=== PATIENT | female | born 1965 | race Caucasian/White ===

== ENCOUNTER 2017-08-29 14:49 | Emergency (ER) | payer OTHER, SELFPAY ==
[2017-08-29 14:49] VITALS: BP 133/87; PULSE 75; RESP 14; TEMP 36.4; BMI 38.1
--- NOTE | 2017-08-29 15:21 | CT_ITS ---
STUDY: CT BRAIN WITHOUT CONTRAST REASON FOR EXAM: Female, 52 years old. There is haziness following a recent fall. RADIATION DOSAGE (If Supplied By Facility): CTDIvol = ( 44.99 ) mGy, DLP = ( 779.24 ) mGycm TECHNIQUE: Transaxial CT imaging of the brain was performed without administration of intravenous contrast material. Individualized dose optimization techniques were used for this CT. COMPARISON: None. FINDINGS: Normal soft tissue structures. Normal calvarium. Normal size ventricles and extra-axial spaces for the patient's age. Normal white matter tracts of the cerebral hemispheres. Normal basal ganglia and thalami. Normal brainstem. Normal cerebellum. There is no intracranial hemorrhage. There are no findings of an acute ischemic infarction. Normal visualized paranasal sinuses. CT/Brain/Head without Contrast IMPRESSION: Normal unenhanced CT scan of the brain. Electronically Signed: Sajan Bower MD at 15:51 EST Tel [phone], Service support ,
--- NOTE | 2017-08-29 15:21 | RAD_ITS ---
STUDY: X-RAY - THORACIC SPINE REASON FOR EXAM: Female, 52 years old. History of fall. TECHNIQUE: AP and lateral view(s) of the thoracic spine were obtained. COMPARISON: None. FINDINGS: Normal kyphosis of the thoracic spine. There is no substantial scoliosis. There is demineralization of the thoracic spine with endplate spondylosis. There is multilevel disc space narrowing of the thoracic spine. The soft tissue structures are unremarkable. RAD/Thoracic Spine 3 Views IMPRESSION: Degenerative changes of the dorsal spine. Prior fusion of the lower cervical spine. Electronically Signed: Sajan Bower MD at 15:59 EST Tel [phone], Service support ,
--- NOTE | 2017-08-29 15:21 | CT_ITS ---
STUDY: CT CERVICAL SPINE WITHOUT CONTRAST REASON FOR EXAM: Female, 52 years old. Injury following a recent fall. RADIATION DOSAGE (If Supplied By Facility): CTDIvol = ( 18.64 ) mGy, DLP = ( 326.9 ) mGycm TECHNIQUE: High resolution transaxial imaging was performed without contrast material. Sagittal and coronal images were reconstructed. Individualized dose optimization techniques were used for this CT. COMPARISON: None FINDINGS: Normal craniovertebral junction. Normal anterior atlantoaxial articulation. Normal odontoid process. Normal cervical lordosis. Normal vertebral bodies and posterior osseous elements. C2-3: Normal endplates. Normal disc height and morphology. Normal central canal and intervertebral neuroforamina. C3-4: Normal endplates. Normal disc height and morphology. Normal central canal and intervertebral neuroforamina. C4-5: Mild degree of anterior spondylosis. C5-6: Mild degree of disc space narrowing and degeneration. No significant abnormality is seen. C6-7: The patient is status post anterior fusion and disc placement at the C6-C7 level. There is good alignment. No significant abnormality is seen. C7-T1: Normal endplates. Normal disc height and morphology. Normal central canal and intervertebral neuroforamina. Normal visualized soft tissue structures. CT/Spine Cervical without Contras IMPRESSION: Status post fusion at the C6-C7 level. No acute abnormality is seen. Electronically Signed: Sajan Bower MD at 15:53 EST Tel [phone], Service support ,
--- NOTE | 2017-08-29 15:22 | ED.VISSUMM ---
- ER Visit Summary Date of Service: 08/29/17 Chief Complaint: Fall History of Present Illness: The patient is a 52 F who is post trauma day 3 from a fall down steps. She states that Monday night she went to let the dog out and she slipped. She landed on her low back and then she went down the stairs struck her mid back and then her head. She states that since that time she has had pain diffusely in her back that is worse with movements. She has pain in the neck is worse with movement. Tinnitus is worse. She notes constant headache and nausea. Been no vomiting. She denies paresthesias or muscle weakness. Patient has a history of PTSD, anxiety, depression, vertigo and GERD. She also notes a bladder disorder. She denies being on any blood thinners. Physical Examination: Afebrile vital signs are stable Gen: Well-nourished well-developed Head: Normocephalic atraumatic Eyes: Perrl EOMI ENT: TMs clear no rhinorrhea moist mucous membranes Neck: Supple no lymphadenopathy no JVD tender to palpation diffusely in the paraspinal and midline. CVS: Regular rate rhythm no murmurs normal S1-S2 Respiratory: No distress clear to auscultation bilaterally chest nontender Abdomen: Soft nontender nondistended normal bowel sounds no masses Back: Patient has paraspinal thoracic tenderness and tenderness in the midline and paraspinal of the lumbar spine. There is contusion noted over the upper lumbar region. Extremity: Nontender no edema Skin: Normal color no rash Neuro: alert orientated ?3 CN II-XII intact normal strength sensation reflexes gait cerebellar Psych: Normal affect normal mood Test Results: CT of brain and C-spine was obtained. Thoracic and lumbar spine films were also obtained. These were negative for acute. Emergency Department Course and Treatment: Patient will be discharged home with supportive care. Instructions for rest. Zofran for nausea. Tylenol or ibuprofen for pain. Follow-up with her doctor in 1 week. Impression: 1. Fall down steps 2. Concussion 3. Cervical and thoracic myofascial strain 4. Lumbar myofascial strain and contusion This note was generated with [employer] dictation software. It may contain incorrect words, spelling, and punctuation that were not noted in review of the chart prior to signing ED Disposition - Plan for ED Patient: Disposition: Home or Assisted Living Chief Complaint: Head Injury Instructions: ED Concussion, ED Contusion Back Prescriptions: Ondansetron [Zofran Odt] 4 mg PO Q8H PRN PRN #10 tab PRN Reason: Nausea Referrals: Care Physician,No Primary [Primary Care Provider] - Shan Epstein MD [STAFF PHYSICIAN] - 1 Week
--- NOTE | 2017-08-29 15:30 | RAD_ITS ---
STUDY: X-RAY - LUMBAR SPINE REASON FOR EXAM: Female, 52 years old. Pain following a fall. TECHNIQUE: 3 view(s) of the lumbar spine were obtained. COMPARISON: None FINDINGS: Normal lumbar lordosis. There is no substantial scoliosis. There is a normal alignment of the vertebrae. Normal vertebral bodies and endplates. Normal disc space heights. The soft tissue structures are unremarkable. RAD/Lumbar Spine 2 or 3 Views IMPRESSION: Normal x-ray examination of the lumbar spine. Electronically Signed: Sajan Bower MD at 15:56 EST Tel [phone], Service support ,
[2017-08-29 16:26] VITALS: BP 134/74; PULSE 79; RESP 16; O2SAT 98
== END 2017-08-29 16:29 | disposition home or self-care (01) ==
PROVIDERS: Emergency Provider Emergency Medicine
DX: S06.0X0A Concussion without loss of consciousness, initial encounter (principal); S16.1XXA Strain of muscle, fascia and tendon at neck level, initial encounter; S29.019A Strain of muscle and tendon of unspecified wall of thorax, initial encounter; S39.012A Strain of muscle, fascia and tendon of lower back, initial encounter; S30.0XXA Contusion of lower back and pelvis, initial encounter; R40.2410 Glasgow coma scale score 13-15, unspecified time; W10.9XXA Fall (on) (from) unspecified stairs and steps, initial encounter; Y93.9 Activity, unspecified; Y92.9 Unspecified place or not applicable; K21.9 Gastro-esophageal reflux disease without esophagitis; F43.10 Post-traumatic stress disorder, unspecified; F32.9 Major depressive disorder, single episode, unspecified; F41.9 Anxiety disorder, unspecified; R42 Dizziness and giddiness; N32.9 Bladder disorder, unspecified; Z72.89 Other problems related to lifestyle; Z79.899 Other long term (current) drug therapy; Z72.0 Tobacco use
CPT/HCPCS: 70450; 72072; 72100; 72125; 99282

== ENCOUNTER 2019-09-26 13:14 | Observation (INO) | payer SELFPAY ==
[2019-09-26] VITALS (7 sets, daily range): BP systolic 123–160; BP diastolic 88–96; PULSE 71–96; RESP 15–20; TEMP 36.4–36.6; O2SAT 92–97; BMI 25.4; BMI 25.7
--- NOTE | 2019-09-26 13:23 | EKG12_ITS ---
Test Reason : CP SOB Blood Pressure : / mmHG Vent. Rate : 082 BPM Atrial Rate : 082 BPM P-R Int : 144 ms QRS Dur : 082 ms QT Int : 378 ms P-R-T Axes : 045 033 036 degrees QTc Int : 441 ms Normal sinus rhythm Normal ECG Confirmed by CLAUDIA ARANDA, NIKO ([id number]), news video editor DANTE LAFLEUR ([id number]) on 09/30/2019 10:29:24 AM Referred By: BUNNY Confirmed By:PAULA TAYLOR MD
--- NOTE | 2019-09-26 13:36 | ED.DCSUM_ITS ---
- ER Visit Summary Date of Service: 09/26/19 Chief Complaint: [Shortness of breath] History of Present Illness: The patient is a 54 F [presents to the emergency department with complaint of shortness of breath that started about a week ago. Patient states that she was exposed to somebody at work and had pneumonia. Patient thinks she has pneumonia. She complains of a cough that is nonproductive. She has not taken her temperature at home but she has had chills and sweats. Patient complains of intermittent sharp stabbing chest pains both sides of her chest. Complains of shortness of breath with activity and exertion. Patient has history of migraines as well as vertigo as well as IBS. She has had prior cholecystectomy. Patient was placed on oxygen on arrival in the emergency department as she was acutely severely dyspneic secondary that walking up the ramp. Patient was not noted to be hypoxic however.] Physical Examination: [HEENT-PERRLA, EOMI. Cranial nerves II through XII grossly intact. TMs clear. Mucous membranes moist. No adenopathy. Cardiovascular-regular rate and rhythm without murmur or ectopy Lungs-good aeration bilaterally. Patient has some mild conversational dyspnea. Patient has some faint expiratory wheezes bilaterally. No accessory muscle use or retractions noted. Abdomen-normoactive bowel sounds, soft, nontender, no rebound or rigidity, no peritoneal signs. Extremities-intact ?4, normal range of motion, normal pulses, atraumatic] Test Results: [CBC with differential obtained showed white blood cell count of 8.0, hemoglobin 12, hematocrit 37, platelets 181. Chemistries unremarkable. EKG obtained arrival shows sinus rhythm with a ventricular rate of 82 bpm with no acute ST segment changes. Lactate was 1.3. D-dimer was 0.33. Chest x-ray showed bilateral lower lobe infiltrates. Blood cultures ordered.] Emergency Department Course and Treatment: [Initially patient was ordered albuterol however she states that she cannot tolerate it causes her to have con vulsions and she refused it. Patient has multiple drug allergies. I did order Levaquin although she does have allergy to ciprofloxacin and that she gets a rash with Cipro. Patient not sure if she is ever had Levaquin.] Treatment Plan: [Admit] Disposition: [Admit] Impression: [Community-acquired pneumonia Dyspnea] This note was generated with Dragon dictation software. It may contain incorrect words, spelling, and punctuation that were not noted in review of the chart prior to signing ED Disposition - Plan for ED Patient: Referrals: Care Physician,No Primary [NON-STAFF] -
[2019-09-26 14:06] LABS: Absolute Lymphocyte Count 1.48 X10^3/uL (0.83-4.51); Basophil# 0.03 X10^3/uL; Basophil% 0.4 % (0-1); Eosinophil# 0.07 X10^3/uL; Eosinophils% 0.9 % (0-5); Hematocrit 36.9 % (37-47); Lymphocyte # 1.48 X10^3/ul (4.0); Lymphocyte % 18.5 % (19-41); Mean Corp Hgb Conc 32.5 g/dL (32-36); Mean Corpuscular Hgb 31.1 pg (27.0-32.0); Mean Corpuscular Volume 95.6 fL (81-99); Mean Platelet Vol. 9.9 fl (6.2-12.0); Monocyte# 0.42 X10^3/uL; Monocyte% 5.2 % (0-10); NRBC Flagged by Analyzer 0 % (0-5); Neutrophil # 5.98 X10^3/uL (2.7-7.7); Neutrophil % 74.5 % (47-70); Platelet Count 181 K/mm3 (150-450); Red Blood Count 3.86 M/mm3 (4.2-5.4)
--- NOTE | 2019-09-26 14:15 | RAD_ITS ---
EXAM DESCRIPTION: PA and lateral chest CLINICAL HISTORY: 54 years Female, cough, chest pain cough, chest pain COMPARISON: Previous is obtained on 05/11/2012 FINDINGS: The thorax is intact. The heart and mediastinum appear to be within normal limits. Patchy pneumonic infiltrates are noted in both lung bases which previously were not seen. Some of the increased density may in fact be due to subsegmental atelectasis. RAD/Chest PA and Lateral IMPRESSION: Atelectasis and patchy pneumonic infiltrates are noted in both lung bases. Electronically Signed: Erasmo Eason, at 14:46 EST Tel , Service support ,
[2019-09-26 14:19] LABS: Anion Gap 5 (5-15); BUN 25 mg/dL (7-18); BUN/Creat Ratio 20.5 RATIO (10-20); Calcium,Total 8.9 mg/dL (8.5-10.1); Chloride 111 mmol/L (98-107); Creatinine, Serum 1.22 mg/dL (0.55-1.02); D-Dimer Quantitative (DVT/PE) 0.33 FEU/ug/m (0.27-0.49); EST Glomerular Filtration Rate 49 mL/min (>60); Est Glom Filt Rate - Afr Amer 59 mL/min (>60); Glucose 142 mg/dL (74-106); Potassium 3.7 mmol/L (3.5-5.1); Sodium Level 143 mmol/L (136-145)
[2019-09-26 14:28] LABS: Lactic Acid 1.3 mmol/L (0.4-1.9)
[2019-09-26] MEDS: 0.9% Normal Saline 1,000 ML 150 ML IV (14:34)
--- NOTE | 2019-09-26 15:25 | PCM.HP.STD ---
Problem List (1) Pneumonia Status: Acute Qualifiers: Pneumonia type: due to unspecified organism Laterality: bilateral Lung location: lower lobe of lung Qualified Code(s): J18.9 - Pneumonia, unspecified organism (2) Hyperglycemia Status: Acute (3) Migraines Status: Chronic Qualifiers: Migraine type: unspecified Status migrainosus presence: without status migrainosus Intractability: not intractable Qualified Code(s): G43.909 - Migraine, unspecified, not intractable, without status migrainosus (4) Chronic back pain Status: Chronic Qualifiers: Back pain location: back pain in unspecified location Back pain laterality: unspecified Qualified Code(s): M54.9 - Dorsalgia, unspecified; G89.29 - Other chronic pain (5) Vestibular vertigo Status: Chronic Qualifiers: Laterality: unspecified laterality Qualified Code(s): H81.399 - Other peripheral vertigo, unspecified ear (6) IBD (inflammatory bowel disease) Status: Chronic (7) Fibromyalgia Status: Chronic (8) Tobacco use Status: Chronic History of Present Illness Date of Admission: 09/26/19 Chief Complaint: Cough, dyspnea, pleuritic chest pain The patient is a 54 y/o F w/ PMHx: Chronic Migraines, Chronic back pain w/ DDD, Vestibular Vertigo, IBD, Fibromyalgia, Former Tobacco use who presents to the [facility] ED on 09/26/19 with history of ongoing, progressively worsening severe harsh cough with rare productive sputum with dyspnea although worse with exertion with chills, subjective fevers and diaphoresis in addition to bilateral diffuse pleuritic chest discomfort, worse with increased respiratory effort as well as activity and certain movements prompting patient eventual ED presentation for evaluation. In ED included T 97.6, rate 86, BP 142/93, respiratory rate 20, 95% room air, CBC with WC 8.0, hemoglobin 12.0, platelet 181 with no severe appearing shift, d-dimer 0.33, BMP with chloride 111, BUN/creatinine 25/1.22, glucose 142, lactic acid 1.3, rapid influenza negative, blood culture x2 pending per ED, chest x-ray with atelectasis and patchy pneumonic infiltrate in bilateral lung bases in the ED patient ministered DuoNeb therapy, Levaquin in edition normal saline. Past Medical History Past Medical History (Chronic Problems): Chronic Problems Migraines (Chronic) Chronic back pain (Chronic) Vestibular vertigo (Chronic) IBD (inflammatory bowel disease) (Chronic) Fibromyalgia (Chronic) Tobacco use (Chronic) Allergies acetaminophen [From Percocet] Allergy (Verified 09/26/19 13:14) Hives adhesive Allergy (Verified 09/26/19 13:14) Hives amitriptyline Allergy (Verified 09/26/19 13:14) Hives amoxicillin Allergy (Verified 09/26/19 13:14) Hives azithromycin [From Zithromax] Allergy (Verified 09/26/19 13:14) Hives ciprofloxacin [From Cipro] Allergy (Verified 09/26/19 13:14) Hives ciprofloxacin HCl [From Cipro] Allergy (Verified 09/26/19 13:14) Hives diphenhydramine HCl [From Benadryl] Allergy (Verified 09/26/19 13:14) Anaphylaxis duloxetine HCl [From Cymbalta] Allergy (Verified 09/26/19 13:14) Other HALLUCINATIONS furosemide [From Lasix] Allergy (Verified 09/26/19 13:14) Hives guaifenesin [From Mucinex] Allergy (Verified 09/26/19 13:14) Hives hydrochlorothiazide Allergy (Verified 09/26/19 13:14) Hives iodine Allergy (Verified 09/26/19 13:14) Hives latex Allergy (Verified 09/26/19 13:14) Hives orange juice Allergy (Verified 09/26/19 13:14) Hives oxycodone HCl [From Percocet] Allergy (Verified 09/26/19 13:14) Hives Penicillins Allergy (Verified 09/26/19 13:14) Hives povidone-iodine [From Betadine] Allergy (Verified 09/26/19 13:14) Hives ramelteon [From Rozerem] Allergy (Verified 09/26/19 13:14) Other HALLUCINATIONS soap [From Betadine] Allergy (Verified 09/26/19 13:14) Hives Sulfa (Sulfonamide Antibiotics) Allergy (Verified 09/26/19 13:14) Hives topiramate [From Topamax] Allergy (Verified 09/26/19 13:14) Hives venlafaxine HCl [From Effexor] Allergy (Verified 09/26/19 13:14) Hives BERRIES Allergy (Uncoded 09/26/19 13:14) Unknown Home Medications: Ambulatory Orders Medication Instructions Recorded ALPRAZolam [Xanax] 3 mg PO QHS 12/04/14 Montelukast [Singulair] 10 mg PO DAILY 12/04/14 Pantoprazole Sodium [Protonix] 40 mg PO QHS 12/04/14 traZODone [Desyrel] 50 mg PO QHS PRN PRN 12/04/14 Pentosan Polysulfate Sodium 100 mg PO BID 07/20/16 [Elmiron] Ondansetron [Zofran Odt] 4 mg PO Q8H PRN PRN #10 tab 08/29/17 Acetaminophen/Diphenhydramine 1 tab PO QHS 09/26/19 [Tylenol Pm Ex-Strength Caplet] Benzonatate [Tessalon Perle] 200 mg PO TID 09/26/19 Cetirizine HCl [Zyrtec] 20 mg PO QHS 09/26/19 Fluticasone 0.05% [Flonase Nasal 2 spray NASAL QHS 09/26/19 [place]] Hyoscyamine Sulfate 0.125 mg PO DAILY 09/26/19 Nitrofurantoin Macrocrystal 50 mg PO QHS 09/26/19 [Macrodantin] Phenazopyridine HCl [Pyridium] 100 mg PO DAILY 09/26/19 Tizanidine HCl [Zanaflex] 4 mg PO QHS 09/26/19 Surgical History: - - Cholecystectomy, sinus surgery, deviated septum, hysterectomy, neck surgery. Psychiatric History: No pertinent psych hx FUR BUYER History: No pertinent FUR BUYER history Lives: With Family - Patient notes that she lives with her daughter. Smoking Status: Current every day smoker - Patient states she quit cigarette tobacco usage approximately 2 days prior to current presentation with prior to this noting that 2 packs would last her a week and has been attempting to quit. Tobacco Use: Cigarettes Alcohol: Occasional Drugs: None - *Family History Maternal History Items: - - Patient with maternal family history of hypertension, heart disease, CAD, PAD. Paternal History Items: - - Patient with a paternal family history of colon cancer. Review of Systems Constitutional: Reports: Anorexia, Chills, Fever, Malaise, Weakness, Fatigue. Denies: Weight Change HEENT: Reports: Head Aches, Nasal Congestion, Sinus Congestion, Sinus Drainage, Sore Throat Cardiovascular: Reports: Chest Pain. Denies: Chest Pressure, Chest Tightness, Light Headedness, Orthopnea, Palpitations, Syncope Respiratory: Reports: Cough, Pleuritic Pain, Shortness of Breath, Shortness of breath at rest, Shortness of breath upon exertion, Sputum production Gastrointestinal: Reports: Nausea. Denies: Abdominal Pain, Vomiting Genitourinary: Denies: Dysuria Musculoskeletal: Reports: Back Pain, Joint Pain, Muscle pain. Denies: Joint Tenderness Skin: Denies: Rash, Wounds Neurological: Denies: Numbness, Tingling, Focal weakness Psychiatric: Denies: Anxiety, Depression, Homicidal Ideations, Suicidal Ideations Hematologic/ Lymphatic: Denies: Easy Bruising, Easy Bleeding VTE Information - Inpt Only VTE Present on Admission: No VTE Mechan Device Prophylaxis: SCD's VTE Pharm Prophylaxis ordered?: Yes Patient Problems: Active and Suspected Problems Pneumonia (Acute) Hyperglycemia (Acute) Subjective: Patient seated upright in ED bed, fatigued appearing although very talkative and no appearance of dyspnea but does have significant pleuritic discomfort with increased respiratory effort and coughing bout with examination. Objective: Physical Examination: General: awake, alert, oriented x 3 and cooperative, seated upright in the ED bed, no acute distress upon initial evaluation although following coughing bout significant pleuritic discomfort. Skin: normal color, turgor, no icterus, cyanosis. HEENT: AT/NC, EOMI, PERRLA, dry MM, no carotid bruits or JVD noted. Lungs: Diminished breath sounds bilaterally, greater bilateral bases, mildly rhonchorous, no rales, no wheezing, severe dry coughing bout with increased effort request. Heart: Regular rate and rhythm; no gallop, rub audible. Abdomen: soft, NTTP, ND, normal BS, no HSM. Extremities: no cyanosis, clubbing, or edema. Neurological: patient awake, alert, oriented x 3; cognitive function appears baseline intact; pupils equally reactive to light and accomodation; cranial nerves II-XII grossly normal, moving all 4 extremities, no focal deficits, strength severely globally decreased secondary to acute presentation. Psychiatric: affect appears fatigued, no acute evidence of depressive or anxiety feelings. - Physical Exam Vitals/I&O's: Vital Signs Temp Pulse Resp BP Pulse Ox 97.6 F L 83 15 123/88 H 92 09/26/19 13:15 09/26/19 14:26 09/26/19 14:26 09/26/19 14:26 09/26/19 14:26 Oxygen Delivery Method Room Air Weight: 143 lb 4.807 oz Body Mass Index (BMI) 25.4 Microbiology Past 72 Hours 09/26/19 14:07 Mucosa - Nose Influenza Types A,B Direct FA (ANGELA) - Final Laboratory Results 09/26/19 13:50: WBC 8.0, RBC 3.86 L, Hgb 12.0, Hct 36.9 L, MCV 95.6, MCH 31.1, MCHC 32.5, RDW Std Deviation 45.0 H, RDW Coeff of Trista 13.0, Plt Count 181, MPV 9.9, Immature Gran % (Auto) 0.500, Neut % (Auto) 74.5 H, Lymph % (Auto) 18.5 L, [place] % (Auto) 5.2, Eos % (Auto) 0.9, Baso % (Auto) 0.4, Absolute Neuts (auto) 6.0, Absolute Lymphs (auto) 1.48, Nucleated RBC % 0 09/26/19 13:50: D-Dimer Quant (PE/DVT) 0.33 09/26/19 13:50: Sodium 143, Potassium 3.7, Chloride 111 H, Carbon Dioxide 27.0, Anion Gap 5, BUN 25 H, Creatinine 1.22 H, Estim Creat Clear Calc 43.10, Est GFR (MDRD) Af Amer 59 L, Est GFR (MDRD) Non-Af 49 L, BUN/Creatinine Ratio 20.5 H, Glucose 142 H, Calcium 8.9 09/26/19 13:50: Lactic Acid 1.3 Current Medications Sodium Chloride () 1,000 mls @ 150 mls/hr IV .[id number] Last Admin: 09/26/19 14:34 Dose: 150 mls/hr Documented by: Levofloxacin (Levaquin Iv) 750 mg in 150 mls @ 100 mls/hr IV X1 ONE Stop: 09/26/19 16:38 Assessment/Plan All Active Problems Pneumonia (Acute) Hyperglycemia (Acute) The patient is a 54 y/o F w/ PMHx: Chronic Migraines, Chronic back pain w/ DDD, Vestibular Vertigo, IBD, Fibromyalgia, Former Tobacco use who presents to the [facility] ED on 09/26/19 with history of ongoing, progressively worsening severe harsh cough with rare productive sputum with dyspnea although worse with exertion with chills, subjective fevers and diaphoresis in addition to bilateral diffuse pleuritic chest discomfort, worse with increased respiratory effort as well as activity and certain movements prompting patient eventual ED presentation for evaluation. 1. Community Acquired Bilateral LL Pneumonia: In ED included T 97.6, rate 86, BP 142/93, respiratory rate 20, 95% room air, CBC with WC 8.0, hemoglobin 12.0, platelet 181 with no severe appearing shift, d-dimer 0.33, BMP with chloride 111, BUN/creatinine 25/1.22, glucose 142, lactic acid 1.3, rapid influenza negative, blood culture x2 pending per ED, chest x-ray with atelectasis and patchy pneumonic infiltrate in bilateral lung bases. Will admit to [facility], maintain on oxygen with wean as tolerated to room air, continue ATC duonebs, PRN albuterol, maintained on IV Levaquin secondary to allergy, HOB, IS parameters w/ pending sputum cultures, respiratory viral panel and urine antigens. 2. Hyperglycemia: Admission glucose 142, hemoglobin A1c requested. 3. Mild renal insufficiency: Admission BUN/creatinine 25/1.22, baseline 0.9, likely secondary to acute presentation as noted, continue to hydrate, repeat BMP in AM. 4. Chronic back pain: We will continue patient home Xanax, tizanidine regimen. 5. Chronic insomnia: We will continue patient home trazodone nightly regimen. 6. Allergic rhinitis: We will continue patient home Zyrtec. 7. Chronic IBD: We will continue patient home high Cosamin regimen. 8. GERD: We will continue patient home PPI. 9. DVT prophylaxis: SCDs, Lovenox. Code Visit Inpatient E&M: 10052 Init Hosp L3
[2019-09-26] MEDS: levoFLOXacin IV 750 MG/150 ML BAG 100 MG IV (15:40)
[2019-09-26 18:42] LABS: Hemoglobin A1c 4.4 % (4.2-6.3)
[2019-09-26] MEDS: Benzonatate 100 MG Capsule 200 MG PO (19:02)
[2019-09-26] MEDS: 0.9% Normal Saline 1,000 ML 125 ML IV (19:06)
[2019-09-26] MEDS: HYDROmorphone 0.5 MG/0.5 ML SYRINGE IV ×2 (19:07→23:38)
[2019-09-26] MEDS: 0.9% Saline Lock 10 ML Syringe IV ×2 (19:08→23:38)
[2019-09-26] MEDS: Fluticasone 0.05% 1 SPRAY NASAL.SRY 2 SPRAY NASAL (23:22)
[2019-09-26] MEDS: traZODone 50 MG Tablet PO (23:23)
[2019-09-26] MEDS: ALPRAZolam 0.5 MG Tablet 3 MG PO (23:23)
[2019-09-26] MEDS: Pantoprazole Sodium 40 MG Tablet PO (23:24)
[2019-09-26] MEDS: tiZANidine HCl 2 MG Tablet 4 MG PO (23:24)
[2019-09-27] MEDS: 0.9% Normal Saline 1,000 ML 125 ML IV (03:45)
[2019-09-27 03:57] VITALS: BP 136/81; PULSE 63; RESP 17; TEMP 36.4; O2SAT 94
[2019-09-27] MEDS: Benzonatate 100 MG Capsule 200 MG PO (05:34)
[2019-09-27 06:03] LABS: Absolute Lymphocyte Count 1.45 X10^3/uL (0.83-4.51); Basophil# 0.02 X10^3/uL; Basophil% 0.4 % (0-1); Eosinophil# 0.12 X10^3/uL; Eosinophils% 2.5 % (0-5); Hematocrit 35.1 % (37-47); Hemoglobin 11.2 g/dL (12.0-15.0); Lymphocyte # 1.45 X10^3/ul (4.0); Lymphocyte % 29.7 % (19-41); Mean Corp Hgb Conc 31.9 g/dL (32-36); Mean Corpuscular Hgb 30.8 pg (27.0-32.0); Mean Corpuscular Volume 96.4 fL (81-99); Mean Platelet Vol. 10.1 fl (6.2-12.0); Monocyte# 0.29 X10^3/uL; Monocyte% 5.9 % (0-10); NRBC Flagged by Analyzer 0 % (0-5); Neutrophil # 2.98 X10^3/uL (2.7-7.7); Neutrophil % 61.1 % (47-70); Platelet Count 166 K/mm3 (150-450); RBC Distribution Width CV 12.8 % (11.6-14.6); RBC Distribution Width SD 45.1 fl (35.1-43.9); Red Blood Count 3.64 M/mm3 (4.2-5.4); White Blood Count 4.9 K/mm3 (4.4-11.0)
[2019-09-27 06:27] LABS: ALB/GLOB Ratio 1.1 RATIO (0.9-2.4); AST(SGOT) 24 U/L (15-37); Alanine Aminotransfer ALT/SGPT 61 U/L (13-56); Albumin, Serum 3.2 g/dL (3.2-5.0); Alkaline Phosphatase 63 U/L (45-117); Anion Gap 6 (5-15); BUN 17 mg/dL (7-18); BUN/Creat Ratio 17.4 RATIO (10-20); Calcium,Total 8.2 mg/dL (8.5-10.1); Chloride 112 mmol/L (98-107); Creatinine, Serum 0.98 mg/dL (0.55-1.02); EST Glomerular Filtration Rate 63 mL/min (>60); Est Glom Filt Rate - Afr Amer 76 mL/min (>60); Estimated Creatinine Clearance 53.66 ml/min; Globulin 2.9 g/dL (2.2-4.2); Glucose 101 mg/dL (74-106); Protein, Total 6.1 g/dL (6.4-8.2); Sodium Level 143 mmol/L (136-145)
[2019-09-27 07:00] VITALS: O2SAT 92
--- NOTE | 2019-09-27 07:21 | PCM.PN.HOSP ---
Patient Problems: Active and Suspected Problems Pneumonia (Acute) Hyperglycemia (Acute) Vitals/I&O's: Vital Signs Temp Pulse Resp BP Pulse Ox 97.6 F L 63 17 136/81 H 94 09/27/19 03:57 09/27/19 03:57 09/27/19 03:57 09/27/19 03:57 09/27/19 03:57 Oxygen Delivery Method Room Air Weight: 65.816 kg Body Mass Index (BMI) 25.7 Intake and Output for Last 24 Hours 09/25/19 09/26/19 09/27/19 23:59 23:59 23:59 Intake Total 830 / 1230 1600 / 1600 Output Total 700 / 1300 600 / 600 Balance 130 / -70 1000 / 1000 Microbiology Past 72 Hours 09/26/19 18:20 Urine, Random Legionella Antigen - Final 09/26/19 18:50 Urine, Clean Catch Streptococcus pneumoniae Antigen (M - Final 09/26/19 14:07 Mucosa - Nose Influenza Types A,B Direct FA (ANGELA) - Final Laboratory Results 09/26/19 13:50: WBC 8.0, RBC 3.86 L, Hgb 12.0, Hct 36.9 L, MCV 95.6, MCH 31.1, MCHC 32.5, RDW Std Deviation 45.0 H, RDW Coeff of Trista 13.0, Plt Count 181, MPV 9.9, Immature Gran % (Auto) 0.500, Neut % (Auto) 74.5 H, Lymph % (Auto) 18.5 L, Gem % (Auto) 5.2, Eos % (Auto) 0.9, Baso % (Auto) 0.4, Absolute Neuts (auto) 6.0, Absolute Lymphs (auto) 1.48, Nucleated RBC % 0 09/26/19 13:50: D-Dimer Quant (PE/DVT) 0.33 09/26/19 13:50: Sodium 143, Potassium 3.7, Chloride 111 H, Carbon Dioxide 27.0, Anion Gap 5, BUN 25 H, Creatinine 1.22 H, Estim Creat Clear Calc 43.10, Est GFR (MDRD) Af Amer 59 L, Est GFR (MDRD) Non-Af 49 L, BUN/Creatinine Ratio 20.5 H, Glucose 142 H, Calcium 8.9 09/26/19 13:50: Lactic Acid 1.3 09/26/19 13:50: Hemoglobin A1c 4.4 09/27/19 05:30: WBC 4.9, RBC 3.64 L, Hgb 11.2 L, Hct 35.1 L, MCV 96.4, MCH 30.8, MCHC 31.9 L, RDW Std Deviation 45.1 H, RDW Coeff of Trista 12.8, Plt Count 166, MPV 10.1, Immature Gran % (Auto) 0.400, Neut % (Auto) 61.1, Lymph % (Auto) 29.7, Gem % (Auto) 5.9, Eos % (Auto) 2.5, Baso % (Auto) 0.4, Absolute Neuts (auto) 3.0, Absolute Lymphs (auto) 1.45, Nucleated RBC % 0 09/27/19 05:30: Sodium 143, Potassium 4.0, Chloride 112 H, Carbon Dioxide 25.0, Anion Gap 6, BUN 17, Creatinine 0.98, Estim Creat Clear Calc 53.66, Est GFR (MDRD) Af Amer 76, Est GFR (MDRD) Non-Af 63, BUN/Creatinine Ratio 17.4, Glucose 101, Calcium 8.2 L, Total Bilirubin 0.30, AST 24, ALT 61 H, Alkaline Phosphatase 63, Total Protein 6.1 L, Albumin 3.2, Globulin 2.9, Albumin/Globulin Ratio 1.1 Current Medications Acetaminophen (Tylenol) 650 mg PO Q6H PRN PRN PRN Reason: Pain Score 1-10/Temp > 100.7 F Hydrocodone Bitart/Acetaminophen ([place] 5mg-325mg) 2 tablet PO Q4H PRN PRN PRN Reason: pain 4-10/10 Al Hydroxide/Mg Hydroxide (Mylanta Ii) 30 ml PO Q6H PRN PRN PRN Reason: Gastric Burning Albuterol Sulfate (Ventolin Aerosols) 2.5 mg INHALATION Q2H PRN PRN PRN Reason: dyspnea, wheezing Albuterol/Ipratropium (Duoneb) 3 ml INHALATION Q6HWA.RT [facility] Last Admin: 09/26/19 19:35 Dose: Not Given Documented by: Alprazolam (Xanax) 3 mg PO QHS [facility] Last Admin: 02/27/20 23:23 Dose: 3 mg Documented by: Benzonatate (Tessalon Perle) 200 mg PO TID [facility] Last Admin: 09/27/19 05:34 Dose: 200 mg Documented by: Fluticasone Propionate (Flonase Nasal [place]) 2 spray NASAL QHS [facility] Last Admin: 09/26/19 23:22 Dose: 2 spray Documented by: Glucagon () 1 mg IM .X1 PRN PRN Reason: Hypoglycemia Hydromorphone HCl (Dilaudid Inj) 0.5 mg IV Q4H PRN PRN PRN Reason: Pain Score 6-10/10 Last Admin: 09/26/19 23:38 Dose: 0.5 mg Documented by: Hyoscyamine Sulfate (Levsin/Sl) 0.125 mg PO DAILY [facility] Sodium Chloride () 1,000 mls @ 125 mls/hr IV .Q8H [facility] Last Admin: 09/27/19 03:45 Dose: 125 mls/hr Documented by: Levofloxacin (Levaquin Iv) 750 mg in 150 mls @ 100 mls/hr IV Q48 [facility] Dextrose (Dextrose 10%-Water) 250 mls @ 999 mls/hr IV .Q16M PRN; Protocol PRN Reason: HYPOGLYCEMIA Loratadine (Claritin) 20 mg PO QHS [facility] Magnesium Hydroxide (Milk Of Magnesia) 30 ml PO DAILY PRN PRN PRN Reason: Constipation Montelukast Sodium (Singulair) 10 mg PO DAILY [facility] Nitrofurantoin Macrocrystals (Macrodantin) 50 mg PO QHS [facility] Last Admin: 09/26/19 23:23 Dose: 50 mg Documented by: Non-Formulary Medication (Pentosan Polysulfate Sodium [Elmiron]) 100 mg PO BID [facility] Nutritional Formula (Lactose Free) (Ensure Enlive) 120 ml PO 4X/DAY [facility] Last Admin: 09/26/19 22:55 Dose: Not Given Documented by: Ondansetron HCl (Zofran) 4 mg IV Q8H PRN PRN PRN Reason: NAUSEA/VOMITING Pantoprazole Sodium (Protonix) 40 mg PO QHS [facility] Last Admin: 09/26/19 23:24 Dose: 40 mg Documented by: Prochlorperazine Edisylate (Compazine Iv) 5 mg IV Q4H PRN PRN PRN Reason: Breakthrough nausea/vomiting Psyllium Hydrophilic Mucilloid (Metamucil) 1 packet PO DAILY PRN PRN PRN Reason: Constipation Senna/Docusate Sodium (Senokot-S, Sophia-Colace) 2 tablet PO BID PRN PRN PRN Reason: Constipation Sodium Chloride () 10 - 40 ml IV UD PRN PRN Reason: SALINE FLUSH Last Admin: 09/26/19 23:38 Dose: 10 ml Documented by: Throat Lozenges (Cepacol Sore Throat Lozenge) 1 lozenge MUCOUS MEM Q2H PRN PRN PRN Reason: SORE THROAT Tizanidine HCl (Zanaflex) 4 mg PO QHS [facility] Last Admin: 09/26/19 23:24 Dose: 4 mg Documented by: Trazodone HCl (Desyrel) 50 mg PO QHS PRN PRN PRN Reason: INSOMNIA Last Admin: 09/26/19 23:23 Dose: 50 mg Documented by: STROKE Vital Signs/Narrative: Vital Signs Temp Pulse Resp BP Pulse Ox 09/27/19 03:57 97.6 F L 63 17 136/81 H 94 Medical Necessity - Tobacco Use Smoking Status: Current every day smoker Tobacco Use: Cigarettes Assessment/Plan All Active Problems Pneumonia (Acute) Hyperglycemia (Acute) Clinical Impression(s) from Imaging Studies Chest X-Ray 09/26/19 14:15 IMPRESSION: Atelectasis and patchy pneumonic infiltrates are noted in both lung bases. Electronically Signed: Erasmo Eason, at 14:46 EST Tel , Service support ,
--- NOTE | 2019-09-27 07:53 | CPS ---
Emilie not done, pt says Albuterol causes her to have seizures/convulsions. R.T. informed RN of this.
--- NOTE | 2019-09-27 10:16 | DCINST_ITS ---
- Discharge Diagnoses Current Active Problems: Current Active and Chronic Problems Pneumonia (Acute) Migraines (Chronic) Chronic back pain (Chronic) Vestibular vertigo (Chronic) Hyperglycemia (Acute) IBD (inflammatory bowel disease) (Chronic) Fibromyalgia (Chronic) Tobacco use (Chronic) You will use the following diet at home:: No restrictions Discharge Activity: May not drive while taking narcotic pain medications. Allergies/Adverse Reactions: Allergies adhesive Allergy (Verified 09/26/19 13:14) Hives amitriptyline Allergy (Verified 09/26/19 13:14) Hives amoxicillin Allergy (Verified 09/26/19 13:14) Hives azithromycin [From Zithromax] Allergy (Verified 09/26/19 13:14) Hives ciprofloxacin [From Cipro] Allergy (Verified 09/26/19 13:14) Hives ciprofloxacin HCl [From Cipro] Allergy (Verified 09/26/19 13:14) Hives diphenhydramine HCl [From Benadryl] Allergy (Verified 09/26/19 13:14) Anaphylaxis duloxetine HCl [From Cymbalta] Allergy (Verified 09/26/19 13:14) Other HALLUCINATIONS furosemide [From Lasix] Allergy (Verified 09/26/19 16:15) I couldn't talk. It put me in the [facility] guaifenesin [From Mucinex] Allergy (Verified 09/26/19 13:14) Hives hydrochlorothiazide Allergy (Verified 09/26/19 13:14) Hives iodine Allergy (Verified 09/26/19 13:14) Hives latex Allergy (Verified 09/26/19 13:14) Hives orange juice Allergy (Verified 09/26/19 16:15) Anaphylaxis oxycodone HCl [From Percocet] Allergy (Verified 09/26/19 13:14) Hives Penicillins Allergy (Verified 09/26/19 13:14) Hives povidone-iodine [From Betadine] Allergy (Verified 09/26/19 13:14) Hives ramelteon [From Rozerem] Allergy (Verified 09/26/19 16:15) HALLUCINATIONS HALLUCINATIONS soap [From Betadine] Allergy (Verified 09/26/19 13:14) Hives Sulfa (Sulfonamide Antibiotics) Allergy (Verified 09/26/19 13:14) Hives topiramate [From Topamax] Allergy (Verified 09/26/19 13:14) Hives venlafaxine HCl [From Effexor] Allergy (Verified 09/26/19 13:14) Hives BERRIES Allergy (Uncoded 09/26/19 16:15) Food Allergy Medications to take at Discharge ALPRAZolam [Xanax] 3 mg PO QHS 12/04/14 Montelukast [Singulair] 10 mg PO DAILY 12/04/14 Pantoprazole Sodium [Protonix] 40 mg PO QHS 12/04/14 traZODone [Desyrel] 50 mg PO QHS PRN PRN 12/04/14 Pentosan Polysulfate Sodium [Elmiron] 100 mg PO BID 07/20/16 Ondansetron [Zofran Odt] 4 mg PO Q8H PRN PRN #10 tab 08/29/17 Acetaminophen/Diphenhydramine [Tylenol Pm Ex-Strength Caplet] 1 tab PO QHS 09/26/19 Benzonatate [Tessalon Perle] 200 mg PO TID 09/26/19 Cetirizine HCl [Zyrtec] 20 mg PO QHS 09/26/19 Fluticasone 0.05% [Flonase Nasal [place]] 2 spray NASAL QHS 09/26/19 Hyoscyamine Sulfate 0.125 mg PO DAILY 09/26/19 Nitrofurantoin Macrocrystal [Macrodantin] 50 mg PO QHS 09/26/19 Phenazopyridine HCl [Pyridium] 100 mg PO DAILY 09/26/19 Tizanidine HCl [Zanaflex] 4 mg PO QHS 09/26/19 Benzonatate [Tessalon Perle] 200 mg PO TID #30 cap 09/27/19 Levofloxacin [Levaquin] 750 mg PO DAILY #5 tab 09/27/19 The following prescriptions were given: Levofloxacin [Levaquin] 750 mg PO DAILY #5 tab Transmission Status: Pending to [facility] Benzonatate [Tessalon Perle] 200 mg PO TID #30 cap Transmission Status: Pending to [facility] Primary Care Physician: Shan Epstein MD [Primary Care Provider] - Please follow up with your Primary Care Physician in: in 1 week Test Results: Test results from this visit will be discussed in further detail at your follow- up appointment, if applicable. Proposed Discharge Date: 09/27/19
[2019-09-27] MEDS: Montelukast 10 MG Tablet PO (10:21)
--- NOTE | 2019-09-27 10:23 | PCM.DC.SUM ---
Discharge Date and Diagnosis - Problem List Patient Problems: Active and Suspected Problems Pneumonia (Acute) Hyperglycemia (Acute) Date of Admission: 09/26/19 Date of Discharge: 09/27/19 - Primary Discharge Diagnosis Active and Suspected Problems Pneumonia (Acute) Hyperglycemia (Acute) - Secondary Discharge Diagnosis Chronic Problems Migraines (Chronic) Chronic back pain (Chronic) Vestibular vertigo (Chronic) IBD (inflammatory bowel disease) (Chronic) Fibromyalgia (Chronic) Tobacco use (Chronic) Hospital Course and Treatment Imaging Results: Clinical Impression(s) from Imaging Studies Chest X-Ray 09/26/19 14:15 IMPRESSION: Atelectasis and patchy pneumonic infiltrates are noted in both lung bases. Electronically Signed: Erasmo Eason, at 14:46 EST Tel , Service support , Summary of Care Provided: The patient is a 54 year old F of tobacco use who presented with progressive shortness of breath. A diagnosis of community-acquired pneumonia with suspected streptococcal pneumonia was made. Admitted to regular nursing floor for further management Community-acquired pneumonia with streptococcal pneumonia patient was managed with Levaquin in addition to aerosol treatment and supplemental oxygen. Patient condition did improve a day after her admission and discharged home to complete her treatment with Levaquin Tobacco dependence counseled on cessation, offered nicotine patch for tobacco cravings Patient Problems: Active and Suspected Problems Pneumonia (Acute) Hyperglycemia (Acute) - Physical Exam Vitals/I&O's: Vital Signs Temp Pulse Resp BP Pulse Ox 97.6 F L 63 17 136/81 H 92 09/27/19 03:57 09/27/19 03:57 09/27/19 03:57 09/27/19 03:57 09/27/19 07:00 Oxygen Delivery Method Room Air Weight: 65.816 kg Body Mass Index (BMI) 25.7 Intake and Output for Last 24 Hours 09/25/19 09/26/19 09/27/19 23:59 23:59 23:59 Intake Total 830 / 1230 2406.25 / 2406.25 Output Total 700 / 1300 600 / 600 Balance 130 / -70 1806.25 / 1806.25 General: Alert HEENT: Atraumatic Lungs: Diminished Cardiovascular: Regular rate, Regular Rhythm Microbiology Past 72 Hours 09/26/19 19:35 Mucosa - Nasopharyngeal Respiratory Panel (PCR) - Final 09/26/19 18:20 Urine, Random Legionella Antigen - Final 09/26/19 18:50 Urine, Clean Catch Streptococcus pneumoniae Antigen (M - Final 09/26/19 14:07 Mucosa - Nose Influenza Types A,B Direct FA (ANGELA) - Final Laboratory Results 09/26/19 13:50: WBC 8.0, RBC 3.86 L, Hgb 12.0, Hct 36.9 L, MCV 95.6, MCH 31.1, MCHC 32.5, RDW Std Deviation 45.0 H, RDW Coeff of Trista 13.0, Plt Count 181, MPV 9.9, Immature Gran % (Auto) 0.500, Neut % (Auto) 74.5 H, Lymph % (Auto) 18.5 L, [place]ay % (Auto) 5.2, Eos % (Auto) 0.9, Baso % (Auto) 0.4, Absolute Neuts (auto) 6.0, Absolute Lymphs (auto) 1.48, Nucleated RBC % 0 09/26/19 13:50: D-Dimer Quant (PE/DVT) 0.33 09/26/19 13:50: Sodium 143, Potassium 3.7, Chloride 111 H, Carbon Dioxide 27.0, Anion Gap 5, BUN 25 H, Creatinine 1.22 H, Estim Creat Clear Calc 43.10, Est GFR (MDRD) Af Amer 59 L, Est GFR (MDRD) Non-Af 49 L, BUN/Creatinine Ratio 20.5 H, Glucose 142 H, Calcium 8.9 09/26/19 13:50: Lactic Acid 1.3 09/26/19 13:50: Hemoglobin A1c 4.4 09/27/19 05:30: WBC 4.9, RBC 3.64 L, Hgb 11.2 L, Hct 35.1 L, MCV 96.4, MCH 30.8, MCHC 31.9 L, RDW Std Deviation 45.1 H, RDW Coeff of Trista 12.8, Plt Count 166, MPV 10.1, Immature Gran % (Auto) 0.400, Neut % (Auto) 61.1, Lymph % (Auto) 29.7, Quay % (Auto) 5.9, Eos % (Auto) 2.5, Baso % (Auto) 0.4, Absolute Neuts (auto) 3.0, Absolute Lymphs (auto) 1.45, Nucleated RBC % 0 09/27/19 05:30: Sodium 143, Potassium 4.0, Chloride 112 H, Carbon Dioxide 25.0, Anion Gap 6, BUN 17, Creatinine 0.98, Estim Creat Clear Calc 53.66, Est GFR (MDRD) Af Amer 76, Est GFR (MDRD) Non-Af 63, BUN/Creatinine Ratio 17.4, Glucose 101, Calcium 8.2 L, Total Bilirubin 0.30, AST 24, ALT 61 H, Alkaline Phosphatase 63, Total Protein 6.1 L, Albumin 3.2, Globulin 2.9, Albumin/Globulin Ratio 1.1 Current Medications Acetaminophen (Tylenol) 650 mg PO Q6H PRN PRN PRN Reason: Pain Score 1-10/Temp > 100.7 F Hydrocodone Bitart/Acetaminophen ([place] 5mg-325mg) 2 tablet PO Q4H PRN PRN PRN Reason: pain 4-10/10 Al Hydroxide/Mg Hydroxide (Mylanta Ii) 30 ml PO Q6H PRN PRN PRN Reason: Gastric Burning Albuterol Sulfate (Ventolin Aerosols) 2.5 mg INHALATION Q2H PRN PRN PRN Reason: dyspnea, wheezing Albuterol/Ipratropium (Duoneb) 3 ml INHALATION Q6HWA.RT [facility] Last Admin: 09/26/19 19:35 Dose: Not Given Documented by: Alprazolam (Xanax) 3 mg PO QHS [facility] Last Admin: 09/26/19 23:23 Dose: 3 mg Documented by: Benzonatate (Tessalon Perle) 200 mg PO TID [facility] Last Admin: 09/27/19 05:34 Dose: 200 mg Documented by: Fluticasone Propionate (Flonase Nasal [place]) 2 spray NASAL QHS [facility] Last Admin: 09/26/19 23:22 Dose: 2 spray Documented by: Glucagon () 1 mg IM .X1 PRN PRN Reason: Hypoglycemia Hydromorphone HCl (Dilaudid Inj) 0.5 mg IV Q4H PRN PRN PRN Reason: Pain Score 6-10/10 Last Admin: 09/26/19 23:38 Dose: 0.5 mg Documented by: Hyoscyamine Sulfate (Levsin/Sl) 0.125 mg PO DAILY [facility] Last Admin: 09/27/19 10:21 Dose: Not Given Documented by: Sodium Chloride () 1,000 mls @ 125 mls/hr IV .Q8H [facility] Last Infusion: 09/27/19 10:12 Dose: Infused Documented by: Levofloxacin (Levaquin Iv) 750 mg in 150 mls @ 100 mls/hr IV Q48 [facility] Dextrose (Dextrose 10%-Water) 250 mls @ 999 mls/hr IV .Q16M PRN; Protocol PRN Reason: HYPOGLYCEMIA Loratadine (Claritin) 20 mg PO QHS [facility] Magnesium Hydroxide (Milk Of Magnesia) 30 ml PO DAILY PRN PRN PRN Reason: Constipation Montelukast Sodium (Singulair) 10 mg PO DAILY [facility] Last Admin: 09/27/19 10:21 Dose: 10 mg Documented by: Nitrofurantoin Macrocrystals (Macrodantin) 50 mg PO QHS [facility] Last Admin: 09/26/19 23:23 Dose: 50 mg Documented by: Non-Formulary Medication (Pentosan Polysulfate Sodium [Elmiron]) 100 mg PO BID [facility] Nutritional Formula (Lactose Free) (Ensure Enlive) 120 ml PO 4X/DAY [facility] Last Admin: 09/27/19 10:12 Dose: Not Given Documented by: Ondansetron HCl (Zofran) 4 mg IV Q8H PRN PRN PRN Reason: NAUSEA/VOMITING Pantoprazole Sodium (Protonix) 40 mg PO QHS [facility] Last Admin: 09/26/19 23:24 Dose: 40 mg Documented by: Prochlorperazine Edisylate (Compazine Iv) 5 mg IV Q4H PRN PRN PRN Reason: Breakthrough nausea/vomiting Psyllium Hydrophilic Mucilloid (Metamucil) 1 packet PO DAILY PRN PRN PRN Reason: Constipation Senna/Docusate Sodium (Senokot-S, Sophia-Colace) 2 tablet PO BID PRN PRN PRN Reason: Constipation Sodium Chloride () 10 - 40 ml IV UD PRN PRN Reason: SALINE FLUSH Last Admin: 09/26/19 23:38 Dose: 10 ml Documented by: Throat Lozenges (Cepacol Sore Throat Lozenge) 1 lozenge MUCOUS MEM Q2H PRN PRN PRN Reason: SORE THROAT Tizanidine HCl (Zanaflex) 4 mg PO QHS [facility] Last Admin: 09/26/19 23:24 Dose: 4 mg Documented by: Trazodone HCl (Desyrel) 50 mg PO QHS PRN PRN PRN Reason: INSOMNIA Last Admin: 09/26/19 23:23 Dose: 50 mg Documented by: Discharge Diet: No Restrictions Discharge Activity: May not drive while taking narcotic pain medications. Home Medications: Medications to take at Discharge ALPRAZolam [Xanax] 3 mg PO QHS 12/04/14 Montelukast [Singulair] 10 mg PO DAILY 12/04/14 Pantoprazole Sodium [Protonix] 40 mg PO QHS 12/04/14 traZODone [Desyrel] 50 mg PO QHS PRN PRN 12/04/14 Pentosan Polysulfate Sodium [Elmiron] 100 mg PO BID 07/20/16 Ondansetron [Zofran Odt] 4 mg PO Q8H PRN PRN #10 tab 08/29/17 Acetaminophen/Diphenhydramine [Tylenol Pm Ex-Strength Caplet] 1 tab PO QHS 09/26/19 Benzonatate [Tessalon Perle] 200 mg PO TID 09/26/19 Cetirizine HCl [Zyrtec] 20 mg PO QHS 09/26/19 Fluticasone 0.05% [Flonase Nasal [place]] 2 spray NASAL QHS 09/26/19 Hyoscyamine Sulfate 0.125 mg PO DAILY 09/26/19 Nitrofurantoin Macrocrystal [Macrodantin] 50 mg PO QHS 09/26/19 Phenazopyridine HCl [Pyridium] 100 mg PO DAILY 09/26/19 Tizanidine HCl [Zanaflex] 4 mg PO QHS 09/26/19 Benzonatate [Tessalon Perle] 200 mg PO TID #30 cap 09/27/19 Levofloxacin [Levaquin] 750 mg PO DAILY #5 tab 09/27/19 Following Prescrptions Were Given to Patient: Levofloxacin [Levaquin] 750 mg PO DAILY #5 tab Transmission Status: Pending to [facility] Benzonatate [Tessalon Perle] 200 mg PO TID #30 cap Transmission Status: Pending to [facility] Primary Care Physician: Shan Epstein MD [Primary Care Provider] - Please follow up with your Primary Care Physician in: in 1 week Disposition: Home Minutes spent on discharge:: 35 Patient Condition:: Stable Medical Necessity - Tobacco Use Smoking Status: Current every day smoker Tobacco Use: Cigarettes Meaningful Use Info Meaningful Use Diagnoses (Choose all that apply): None applicable Code Visit OBSV E&M: 22719 Observation care discharge
[2019-09-27 10:25] VITALS: BP 159/100; PULSE 64; RESP 18; TEMP 36.6; O2SAT 96
--- NOTE | 2019-09-27 11:08 | CASEMGMT ---
Social Work SW met with pt in room. Pt on phone with PFS. Pt hung up and stated PFS provided the number for Medicaid and pt is planning on calling when she gets home as she is being discharged today. She states she was working on online application the day she came to hospital. Pt does state her children are supportive and have assisted her with getting a new apartment. Pt states she is also applying for disability. Pt is connected with Mirian Gonzalez and denies needs for information on [employer]. Pt states she will have no difficulty getting medications or food. No stated needs at this time. RICARDO Cerda
== END 2019-09-27 11:52 | disposition home or self-care (01) ==
LOC: ED 13:41 → MS3 16:04
PROVIDERS: Admitting Provider Family Medicine; Emergency Provider Emergency Medicine; PCP Family Medicine; Visit Provider Internal Medicine
DX: J13 Pneumonia due to Streptococcus pneumoniae (principal); R73.9 Hyperglycemia, unspecified; G43.909 Migraine, unspecified, not intractable, without status migrainosus; K58.9 Irritable bowel syndrome, unspecified; G89.29 Other chronic pain; M79.7 Fibromyalgia; F17.210 Nicotine dependence, cigarettes, uncomplicated; N28.9 Disorder of kidney and ureter, unspecified; F51.04 Psychophysiologic insomnia; K21.9 Gastro-esophageal reflux disease without esophagitis; J30.9 Allergic rhinitis, unspecified; Z79.899 Other long term (current) drug therapy; Z79.51 Long term (current) use of inhaled steroids
CPT/HCPCS: 36415; 71046; 80048; 80053; 83036; 83605; 85025; 85379; 87040; 87070; 87205; 87449; 87633; 87804; 93005; 96361; 96365; 96366; 96375; 96376; 97802; 99218; 99251; 99284; J7030; A4216; G0378; G0463

== ENCOUNTER 2020-04-28 07:12 | Day surgery (SDC) | payer MEDICAID, SELFPAY ==
[2019-09-26 17:46] VITALS: BMI 25.7
[2020-04-21 11:37] LABS: Hematocrit 42.2 % (37-47); Hemoglobin 13.7 g/dL (12.0-15.0); Mean Corp Hgb Conc 32.5 g/dL (32-36); Mean Corpuscular Hgb 30.2 pg (27.0-32.0); Mean Platelet Vol. 10.2 fl (6.2-12.0); Platelet Count 209 K/mm3 (150-450); RBC Distribution Width CV 12.6 % (11.6-14.6); RBC Distribution Width SD 43.1 fl (35.1-43.9); Red Blood Count 4.54 M/mm3 (4.2-5.4); White Blood Count 6.5 K/mm3 (4.4-11.0)
[2020-04-21 11:47] LABS: International Normalized Ratio 0.9; Partial Thromboplast Time 27.2 Seconds (24.1-36.2); Prothrombin Time (Protime)PT. 11.7 SECONDS (11.7-14.9)
[2020-04-21 11:52] LABS: AST(SGOT) 25 U/L (15-37); Alanine Aminotransfer ALT/SGPT 56 U/L (13-56); Albumin, Serum 4.2 g/dL (3.2-5.0); Alkaline Phosphatase 75 U/L (45-117); Bilirubin, Direct 0.15 mg/dL (0.00-0.30); Globulin 3.8 g/dL (2.2-4.2)
[2020-04-28] VITALS (7 sets, daily range): BP systolic 141–183; BP diastolic 85–104; PULSE 66–102; RESP 16–20; TEMP 36.2–37.3; O2SAT 91–97; BMI 26.6
--- NOTE | 2020-04-28 07:42 | PCM.OPRPT ---
Problem List (1) Urgency of micturition Status: Acute (2) Frequency of micturition Status: Acute (3) Interstitial cystitis (chronic) without hematuria Status: Chronic (4) Dyspareunia Status: Acute Report of Operation Date of Procedure: 04/28/20 Pre-Operative Diagnosis: urgency, frequency, interstitial cystitis and dyspareunia Post-Operative Diagnosis: same, urethral stenosis Surgery/Procedure Performed:: Pelvic exam under anesthesia, urethral dilation, cystoscopy, hydrodistention Description of Surgical Findings:: Petechiae status post dilation, no Hunner's ulcers Type of Anesthesia:: General Specimen's removed: none Description of Procedure: The patient is a 54-year-old female with a history of interstitial cystitis who presented to the office with uncontrolled urinary urgency, frequency, dyspareunia and pain. I was concerned for the possibility of a Hunner's ulcer. Informed consent was obtained after discussing risks benefits and alternatives including that of COVID-19. The patient was taken to the operating room and placed on the operating room table. Anesthesia monitored the head, neck, airway, IV access and vital signs throughout the case. Once anesthesia was appropriate ministered the patient was placed into dorsal lithotomy position and was prepped and draped in usual sterile fashion. A pelvic examination was performed revealing a large amount of hard stool present throughout the rectal vault. No evidence of prolapse was identified. No pelvic mass was palpable. An attempt was made to pass the cystoscope through the urethral meatus which was small. The urethra was then dilated to 24 [place] and the cystoscope passed through the urethra into the urinary bladder without difficulty. Upon entry into the urinary bladder, the ureteral orifices were located on the area of the trigone. The bladder mucosa in its entirety was visualized. There were no areas of erythema, ulceration, mass, foreign body or other abnormality. The bladder was distended to capacity and allowed to sit for 2 minutes. Upon emptying the bladder the capacity was measured at 450 cc. Upon reentry into the urinary bladder there were a few petechiae observed dispersed throughout the mucosa. The bladder was once again distended to capacity with the fluid exiting around the cystoscope. Once again this was allowed to sit for 2 minutes. There was no blood with emptying of the bladder. The capacity was measured at approximately 500 cc. The patient was then awakened and taken to the recovery room in good condition. There were no complications during this procedure. Grafts/Implants Used: none - Complications none - Admit VTE Documentation VTE Present on Admission: Yes VTE Mechan Device Prophylaxis: SCD's VTE Pharm Prophylaxis ordered?: No Reason prophylaxis not ordered:: Treatment Not Indicated
--- NOTE | 2020-04-28 08:18 | PCM.DC.URO ---
Discharge Diet: No Restrictions Discharge Activity: May not drive while taking narcotic pain medications. May resume sexual activity in: 2 weeks Call your doctor if you observe: Fever of 101 or Higher, Inability to urinate, Inability to have a bowel movement Allergies/Adverse Reactions: Allergies adhesive Allergy (Verified 04/20/20 14:17) Hives amitriptyline Allergy (Verified 04/20/20 14:17) Hives amoxicillin Allergy (Verified 04/20/20 14:17) Hives azithromycin [From Zithromax] Allergy (Verified 04/20/20 14:17) Hives ciprofloxacin [From Cipro] Allergy (Verified 04/20/20 14:17) Hives ciprofloxacin HCl [From Cipro] Allergy (Verified 04/20/20 14:17) Hives diphenhydramine HCl [From Benadryl] Allergy (Verified 04/20/20 14:17) Anaphylaxis duloxetine HCl [From Cymbalta] Allergy (Verified 04/20/20 14:17) Other HALLUCINATIONS furosemide [From Lasix] Allergy (Verified 04/20/20 14:17) I couldn't talk. It put me in the [facility] guaifenesin [From Mucinex] Allergy (Verified 04/20/20 14:17) Hives hydrochlorothiazide Allergy (Verified 04/20/20 14:17) Hives iodine Allergy (Verified 04/20/20 14:17) Hives latex Allergy (Verified 04/20/20 14:17) Hives orange juice Allergy (Verified 04/20/20 14:17) Anaphylaxis oxycodone HCl [From Percocet] Allergy (Verified 04/20/20 14:17) Hives Penicillins Allergy (Verified 04/20/20 14:17) Hives povidone-iodine [From Betadine] Allergy (Verified 04/20/20 14:17) Hives ramelteon [From Rozerem] Allergy (Verified 04/20/20 14:17) HALLUCINATIONS HALLUCINATIONS soap [From Betadine] Allergy (Verified 04/20/20 14:17) Hives Sulfa (Sulfonamide Antibiotics) Allergy (Verified 04/20/20 14:17) Hives topiramate [From Topamax] Allergy (Verified 04/20/20 14:17) Hives venlafaxine HCl [From Effexor] Allergy (Verified 04/20/20 14:17) Hives BERRIES Allergy (Uncoded 04/20/20 14:17) Food Allergy Medications to take at Discharge ALPRAZolam [Xanax] 3 mg PO QHS 12/04/14 Montelukast [Singulair] 10 mg PO DAILY 12/04/14 Pantoprazole Sodium [Protonix] 40 mg PO QHS 12/04/14 traZODone [Desyrel] 50 mg PO QHS 12/04/14 Pentosan Polysulfate Sodium [Elmiron] 100 mg PO BID 07/20/16 Ondansetron [Zofran Odt] 4 mg PO Q8H PRN PRN #10 tab 08/29/17 Acetaminophen/Diphenhydramine [Tylenol Pm Ex-Strength Caplet] 1 tab PO QHS 09/26/19 Cetirizine HCl [Zyrtec] 20 mg PO QHS 09/26/19 Fluticasone 0.05% [Flonase Nasal Marion] 2 spray NASAL QHS 09/26/19 Hyoscyamine Sulfate 0.125 mg PO DAILY 09/26/19 Nitrofurantoin Macrocrystal [Macrodantin] 50 mg PO QHS 09/26/19 Phenazopyridine HCl [Pyridium] 100 mg PO DAILY 09/26/19 Tizanidine HCl [Zanaflex] 4 mg PO QHS 09/26/19 Diphenoxylate HCl/Atropine [Lomotil 2.5-0.025 mg Tablet] 1 ea PO PRN PRN 04/20/20 Divalproex Sodium [Depakote] 125 mg PO BIDCM 04/20/20 Ergocalciferol [Vitamin D] 50,000 unit PO Q7D 04/20/20 Meloxicam [Mobic] 15 mg PO DAILY 04/20/20 Naproxen Sod/Diphenhydramine [Aleve Pm Caplet] 1 ea PO QHS 04/20/20 Simethicone [Gas-X Ultra Strength] 250 mg PO QHS 04/20/20 Simethicone [Gas-X] 125 mg PO DAILY 04/20/20 Sumatriptan Succinate [Imitrex] 100 mg PO .X1 PRN 04/20/20 Fluconazole [Diflucan] 150 mg PO DAILY 2 Days #2 tab 04/28/20 Fluconazole [Diflucan] 150 mg PO DAILY 2 Days #2 tab 04/28/20 Hydrocodone Bitart/Apap 5-325 [[place] 5MG-325MG] 2 tablet PO Q4H PRN PRN 3 Days #10 tablet 04/28/20 The following prescriptions were given: Fluconazole [Diflucan] 150 mg PO DAILY 2 Days #2 tab Transmission Status: Sent to [address] Fluconazole [Diflucan] 150 mg PO DAILY 2 Days #2 tab Transmission Status: Sent to [address] Hydrocodone Bitart/Apap 5-325 [[place] 5MG-325MG] 2 tablet PO Q4H PRN PRN 3 Days #10 tablet PRN Reason: Pain Transmission Status: Received by [address] Primary Care Physician: Shan Epstein MD [Primary Care Provider] - Test Results: Test results from this visit will be discussed in further detail at your follow-up appointment, if applicable. Please Follow Up With: Mandy Asencio MD When: call office for appt Proposed Discharge Date: 04/28/20
[2020-04-28] MEDS: Lactated Ringers 1,000 ML 100 ML IV (08:20)
[2020-04-28] MEDS: HYDROcodone Bitartrate/Apap 5/325 Tablet PO (10:58)
== END 2020-04-28 11:54 | disposition home or self-care (01) ==
LOC: SDC 07:13 → AC 07:13
PROVIDERS: Anesthesiology; PCP Family Medicine; Referring Provider Urology; Visit Provider Urology
PROC: 0TBB8ZX Excision of Bladder, Via Natural or Artificial Opening Endoscopic, Diagnostic (ICD-10-PCS; CPT 52260; principal; 2020-04-28 08:40)
DX: N30.10 Interstitial cystitis (chronic) without hematuria (principal); N94.10 Unspecified dyspareunia; N35.92 Unspecified urethral stricture, female; Z11.59 Encounter for screening for other viral diseases; K58.9 Irritable bowel syndrome, unspecified; K21.9 Gastro-esophageal reflux disease without esophagitis; G25.81 Restless legs syndrome; F41.9 Anxiety disorder, unspecified; F32.9 Major depressive disorder, single episode, unspecified; G43.909 Migraine, unspecified, not intractable, without status migrainosus; Z86.2 Personal history of diseases of the blood and blood-forming organs and certain disorders involving the immune mechanism; Z78.0 Asymptomatic menopausal state; Z87.19 Personal history of other diseases of the digestive system; Z79.899 Other long term (current) drug therapy
CPT/HCPCS: 52260; 36415; 80076; 85027; 85610; 85730; 87635; C9803; J7120; U0003

== ENCOUNTER 2023-02-15 17:39 | Emergency (ER) | payer OTHER, SELFPAY ==
[2023-02-15 17:40] VITALS: BP 148/83; PULSE 68; RESP 17; TEMP 36.5; O2SAT 97; BMI 25.0
--- NOTE | 2023-02-15 17:56 | ED.RN ---
daughter Cari rod [phone]
--- NOTE | 2023-02-15 18:17 | CT_ITS ---
EXAM: CT HEAD WITHOUT INTRAVENOUS CONTRAST CLINICAL INDICATION: headache, vision changes TECHNIQUE: Multiple axial images were obtained of the head without intravenous contrast. This CT exam was performed using one or more of the following dose reduction techniques: automated exposure control, adjustment of the mA and/or kV according to patient size, and/or use of iterative reconstruction technique. COMPARISON: 08/29/2017 FINDINGS: BRAIN AND EXTRA-AXIAL SPACES: Unremarkable. No intra- or extra-axial hemorrhage. No evidence of acute infarct. No intracranial mass or mass effect. There is preservation of the nunez/white matter interface. Posterior fossa structures are unremarkable. Ventricles are appropriate for age. No hydrocephalus. Basal cisterns are patent. BONES/JOINTS: Unremarkable. No discrete lytic or blastic abnormalities. SINUSES: Unremarkable as visualized. Clear. MASTOID AIR CELLS: Unremarkable. Clear. ORBITS: Visualized globes, extraocular muscles, optic nerves and retrobulbar fat appear unremarkable. CT/Brain/Head without Contrast IMPRESSION: Negative head/brain CT without intravenous contrast. There has been no change from the reference exam. Electronically Signed: Mukund Galeas MD at 19:23 EDT ,
--- NOTE | 2023-02-15 18:21 | EX.ED.DYSGE1 ---
HPI History of Present Illness Chief Complaint: Chest Pain Detail of Chief Complaint: Chest pain, edema, headache, vision changes Informant: patient Onset/Context/Timing Onset: Days Narrative Narrative: Patient presents with multiple complaints. She states for the last 5 days or so she has had intermittent swelling in her legs. It improves when she elevates her feet. She is concerned it may be due to the amlodipine she started 2 months ago. For the past 3 days now she has had intermittent blurred vision and headache. In route to the hospital today she had a 25-minute episode of chest tightness and states her lungs feel tight. That seems to be improved at this time. [facility] Medical History Anxiety Arthritis Back pain Bipolar disorder Bladder disease Gastric reflux History of deviated nasal septum History of IBS Hypertension Injury of back Neck pain with history of cervical spinal surgery Smoker Syncope Wears glasses Home Medications alprazolam 1 mg tablet (Xanax) 2 mg PO QHS 12/04/14 [History Last Taken 09/25/19] montelukast 10 mg tablet 10 mg PO DAILY 12/04/14 [History Last Taken 09/25/19] pantoprazole 40 mg tablet,delayed release 40 mg PO DAILY gerd 12/04/14 [History Last Taken 09/25/19] trazodone 50 mg tablet 150 mg PO QHS 12/04/14 [History Last Taken 09/25/19] ondansetron 4 mg disintegrating tablet 4 mg PO Q8H PRN PRN Nausea #10 tabs 08/29/17 [Rx Last Taken Unknown] cetirizine 10 mg tablet 20 mg PO QHS allergies 09/26/19 [History Last Taken 09/25/19] diphenhydramine 25 mg-acetaminophen 500 mg tablet 1 tab PO QHS pain 09/26/19 [History Last Taken 09/25/19] fluticasone propionate 50 mcg/actuation nasal spray,suspension 2 spray NASAL QHS allergies 09/26/19 [History Last Taken 09/25/19] hyoscyamine sulfate 0.125 mg tablet 0.125 mg PO DAILY ibs 09/26/19 [History Last Taken 09/26/19] diphenoxylate-atropine 2.5 mg-0.025 mg tablet 1 ea PO PRN PRN Diarrhea 04/20/20 [History Last Taken Unknown] divalproex 125 mg tablet,delayed release 125 mg PO BIDCM 04/20/20 [History Last Taken Unknown] ergocalciferol (vitamin D2) 1,250 mcg (50,000 unit) capsule 50,000 unit PO Q7D 04/20/20 [History Last Taken Unknown] meloxicam 15 mg tablet 15 mg PO DAILY 04/20/20 [History Last Taken Unknown] simethicone 125 mg capsule 125 mg PO DAILY 04/20/20 [History Last Taken Unknown] simethicone 180 mg capsule 250 mg PO QHS 04/20/20 [History Last Taken Unknown] sumatriptan succinate 100 mg tablet 100 mg PO .X1 PRN 04/20/20 [History Last Taken Unknown] metaxalone 800 mg tablet 800 mg PO TID PRN MUSCLE RELAXER 08/08/22 [History Last Taken Unknown] vibegron 75 mg tablet (Gemtesa) 75 mg PO DAILY 08/08/22 [History Last Taken Unknown] Allergy/AdvReac Type Severity Reaction Status Date / Time adhesive Allergy Hives Verified 02/15/23 17:40 amitriptyline Allergy Hives Verified 02/15/23 17:40 amoxicillin Allergy Hives Verified 02/15/23 17:40 azithromycin [From Zithromax] Allergy Hives Verified 02/15/23 17:40 ciprofloxacin [From Cipro] Allergy Hives Verified 02/15/23 17:40 ciprofloxacin HCl Allergy Hives Verified 02/15/23 17:40 [From Cipro] diphenhydramine HCl Allergy Anaphylaxis Verified 02/15/23 17:40 [From Benadryl] duloxetine HCl Allergy Other Verified 02/15/23 17:40 [From Cymbalta] furosemide [From Lasix] Allergy I Verified 02/15/23 17:40 couldn't talk. It put me in the [facility] guaifenesin [From Mucinex] Allergy Hives Verified 02/15/23 17:40 hydrochlorothiazide Allergy Hives Verified 02/15/23 17:40 iodine Allergy Hives Verified 02/15/23 17:40 latex Allergy Hives Verified 02/15/23 17:40 orange juice Allergy Anaphylaxis Verified 02/15/23 17:40 oxycodone HCl [From Percocet] Allergy Hives Verified 02/15/23 17:40 Penicillins Allergy Hives Verified 02/15/23 17:40 povidone-iodine Allergy Hives Verified 02/15/23 17:40 [From Betadine] ramelteon [From Rozerem] Allergy HALLUCINATI Verified 02/15/23 17:40 ONS soap [From Betadine] Allergy Hives Verified 02/15/23 17:40 Sulfa (Sulfonamide Allergy Hives Verified 02/15/23 17:40 Antibiotics) topiramate [From Topamax] Allergy Hives Verified 02/15/23 17:40 venlafaxine HCl Allergy Hives Verified 02/15/23 17:40 [From Effexor] BERRIES Allergy Food Uncoded 04/20/20 14:17 Allergy Surgical History History of cholecystectomy History of colonoscopy History of esophagogastroduodenoscopy (EGD) History of hysterectomy Hx of cystoscopy Social History Smoking Status: Current every day smoker tobacco type: cigarettes ROS ROS ED Constitutional Constitutional ED: Denies chills or fever(s) Eyes Eyes: Reports change in vision; Denies discharge from eye(s) ENT ENT ED: Denies discharge from eye(s), rhinorrhea or sore throat Cardiovascular Cardiovascular: Reports chest pain; Denies palpitations Respiratory/Chest Respiratory/Chest: Reports dyspnea; Denies cough Gastrointestinal Gastrointestinal: Denies abdominal pain, diarrhea, nausea or vomiting Genitourinary Genitourinary ED: Denies difficulty urinating or dysuria Musculoskeletal Musculoskeletal: Denies back pain or extremity pain Integumentary Denies Abrasions or rash Neurologic Neurologic: Reports headache(s); Denies weakness Psychiatric Psychiatric: Denies anxiety or depression Allergic/Immunologic Allergic/Immunologic ED: Denies lip swelling or urticaria EXAM Physical Exam Const Vital Signs: 02/15/23 17:40 02/15/23 18:42 02/15/23 19:38 Temperature 97.7 F L Temperature Source Temporal Pulse Rate 68 63 Respiratory Rate 17 14 Respiratory Effort Normal Non-Labored Respiratory Pattern Normal Blood Pressure 148/83 H 143/77 H Blood Pressure Mean 104 99 Pulse Ox 97 97 Oxygen Delivery Method Room Air Room Air Positive well nourished and well developed General Appearance ED: well developed HEENT Reports normocephalic and head/scalp atraumatic Eyes PERRL and EOMs intact bilaterally Neck supple Chest Wall inspection of chest normal and palpation of chest normal Resp normal respiratory effort and clear to auscultation bilaterally Cardio regular rate and regular rhythm GI normal to inspection, nondistended, normoactive bowel sounds Palpation: soft Extremity normal to inspection Extremity Narrative: No significant lower extremity edema at this time. Strong distal pulses. Neuro oriented x3 and no sensory deficits noted Sensorium / Orientation: alert Motor Exam: strength 5/5 throughout Psych mental status grossly normal Skin no rashes or lesions noted MDM MDM MDM Narrative Medical decision making narrative: Patient placed on youth nutritional monitor. EKG obtained to evaluate for cardiac arrhythmia/ischemia. Labwork obtained to evaluate for leukocytosis, anemia, and electrolyte derangement. CT scan of the head obtained given her headache and vision changes. Chest x-ray obtained to evaluate for acute lung pathology, cardiac size, or mediastinal abnormality. Lab Data Attestation: I reviewed the patient's lab results. Labs: Laboratory Results - last 24 hr 02/15/23 02/15/23 16:37 21:10 WBC 4.9 RBC 4.20 Hgb 12.9 Hct 38.4 MCV 91.4 MCH 30.7 MCHC 33.6 RDW Std Deviation 41.1 RDW Coeff of Trista 12.4 Plt Count 175 MPV 9.8 Immature Gran % (Auto) 0.400 Neut % (Auto) 63.6 Lymph % (Auto) 28.3 [place] % (Auto) 5.9 Eos % (Auto) 1.2 Baso % (Auto) 0.6 Absolute Neuts (auto) 3.1 Absolute Lymphs (auto) 1.39 Nucleated RBC % 0 Sodium 141 Potassium 4.0 Chloride 108 H Carbon Dioxide 25.0 Anion Gap 8 BUN 17 Creatinine 0.98 Estim Creat Clear Calc 51.76 Est GFR (MDRD) Af Amer 75 Est GFR (MDRD) Non-Af 62 BUN/Creatinine Ratio 17.3 Glucose 100 Calcium 8.9 Troponin I High Sens < 3 L < 3 L B-Natriuretic Peptide 7.5 Radiography Chest X-Ray - ED: 1 View, Read by ED Physician, Normal, Heart, Lungs and Mediastinum Diagnostic Testing: Clinical Impression(s) from Imaging Studies Brain CT 02/15/23 18:17 IMPRESSION: Negative head/brain CT without intravenous contrast. There has been no change from the reference exam. Electronically Signed: Mukund Galeas MD at 19:23 EDT , Chest X-Ray 02/15/23 18:54 IMPRESSION: No radiographic evidence of acute cardiopulmonary disease. Electronically Signed: Mukund Galeas MD at 19:15 EDT , EKG Initial EKG: Attestation: I personally reviewed and interpreted this EKG as follows: Interpretation: Sinus Rhythm (Sinus rhythm at 61 bpm. No acute ischemia.) Treatment and Re-Evaluation :: On repeat evaluation patient resting comfortably in no acute distress. CBC is unremarkable. Chemistry studies are normal. Troponin is less than 3 on initial draw as well as the 2-hour repeat. BNP is normal. Portable chest x-ray per my interpretation reveals no acute abnormalities. Radiology interpretation is reviewed and agrees. CT scan of the head is unremarkable. EKG reveals no ischemia. Test results are all discussed with the patient. She is reassured with these findings. We discussed appropriate foot elevation or even compression stockings to help with her lower extremity edema. She will follow-up with her primary care physician. Discharge Plan Triage Chief Complaint: Chest Pain ED Provider: Kristina Marie Dx/Rx/DC Orders Clinical Impression: Dependent edema, Chest pain Instructions: ED Chest Pain, Uncertain Cause, ED Peripheral Edema, Bilateral Prescriptions: No Action trazodone 50 MG tablet 150 mg PO QHS alprazolam [Xanax] 1 MG tablet 2 mg PO QHS pantoprazole 40 MG tablet 40 mg PO DAILY montelukast 10 MG tablet 10 mg PO DAILY ondansetron 4 MG tablet 4 mg PO Q8H PRN PRN (Reason: Nausea) Qty: 10 0RF cetirizine 10 MG tablet 20 mg PO QHS hyoscyamine sulfate 0.125 MG tablet 0.125 mg PO DAILY diphenhydramine-acetaminophen 1 EACH tablet 1 tab PO QHS fluticasone propionate 1 SPRAY spray,suspension 2 spray NASAL QHS simethicone 180 MG capsule 250 mg PO QHS sumatriptan succinate 100 MG tablet 100 mg PO .X1 PRN meloxicam 15 MG tablet 15 mg PO DAILY simethicone 125 MG capsule 125 mg PO DAILY diphenoxylate-atropine 1 EACH tablet 1 ea PO PRN PRN (Reason: Diarrhea) divalproex 125 MG tablet 125 mg PO BIDCM ergocalciferol (vitamin D2) 50,000 UNIT capsule 50,000 unit PO Q7D metaxalone 800 mg tablet 800 mg PO TID PRN (Reason: MUSCLE RELAXER) Patient Comments: TAKE 1 TABLET BY MOUTH THREE TIMES A DAY NEEDED FOR PAIN Gemtesa 75 mg tablet 75 mg PO DAILY Primary Care Provider: Shan Epstein Referrals: Shan Epstein MD [Primary Care Provider] - 1-2 Weeks Disposition Disposition: Home, Self Care
[2023-02-15 18:42] VITALS: BP 143/77; PULSE 63; RESP 14; O2SAT 97
[2023-02-15 18:44] LABS: Absolute Lymphocyte Count 1.39 X10^3/uL (0.83-4.51); Absolute Neutrophil Count 3.1 X10^3/uL (2.0-7.7); Basophil# 0.03 X10^3/uL; Basophil% 0.6 % (0-1); Eosinophil# 0.06 X10^3/uL; Eosinophils% 1.2 % (0-5); Hematocrit 38.4 % (37-47); Hemoglobin 12.9 g/dL (12.0-15.0); Lymphocyte # 1.39 X10^3/ul (0.83-4.51); Lymphocyte % 28.3 % (19-41); Mean Corp Hgb Conc 33.6 g/dL (32-36); Mean Corpuscular Hgb 30.7 pg (27.0-32.0); Mean Corpuscular Volume 91.4 fL (81-99); Mean Platelet Vol. 9.8 fl (6.2-12.0); Monocyte# 0.29 X10^3/uL; Monocyte% 5.9 % (0-10); NRBC Flagged by Analyzer 0 % (0-5); Neutrophil # 3.12 X10^3/uL (2.7-7.7); Neutrophil % 63.6 % (47-70); Platelet Count 175 K/mm3 (150-450); RBC Distribution Width CV 12.4 % (11.6-14.6); RBC Distribution Width SD 41.1 fl (35.1-43.9); White Blood Count 4.9 K/mm3 (4.4-11.0)
--- NOTE | 2023-02-15 18:54 | RAD_ITS ---
EXAM: XR CHEST, 1 VIEW CLINICAL INDICATION: cp TECHNIQUE: Frontal view of the chest. COMPARISON: 09/26/2019 FINDINGS: LUNGS AND PLEURAL SPACES: Unremarkable. No consolidation or edema. No pneumothorax. No effusion. HEART: Unremarkable. Cardiac silhouette not enlarged. MEDIASTINUM: Central airways and mediastinal contour are unremarkable. BONES/JOINTS: Unremarkable. SOFT TISSUES: Unremarkable. RAD/Chest 1 View (Portable) IMPRESSION: No radiographic evidence of acute cardiopulmonary disease. Electronically Signed: Mukund Galeas MD at 19:15 EDT ,
[2023-02-15 19:02] LABS: Anion Gap 8 (5-15); BUN 17 mg/dL (7-18); BUN/Creat Ratio 17.3 RATIO (10-20); Calcium,Total 8.9 mg/dL (8.5-10.1); Chloride 108 mmol/L (98-107); Creatinine, Serum 0.98 mg/dL (0.55-1.02); EST Glomerular Filtration Rate 62 mL/min (>60); Est Glom Filt Rate - Afr Amer 75 mL/min (>60); Estimated Creatinine Clearance 51.76 ml/min; Glucose 100 mg/dL (74-106); Sodium Level 141 mmol/L (136-145); Troponin-I HS (w/2H Reflex) < 3 pg/mL (3.0-54.0)
[2023-02-15 19:10] LABS: BNP,B-Type NATRIURETIC PEPTIDE 7.5 pg/mL (0-100)
[2023-02-15 20:41] LABS: Reflex Troponin-HS? (from REC) Y
[2023-02-15 21:42] LABS: Troponin-I HS < 3 pg/mL (3.0-54.0)
[2023-02-15 21:52] VITALS: BP 158/58; PULSE 74; RESP 16; O2SAT 98
== END 2023-02-15 21:57 | disposition home or self-care (01) ==
PROVIDERS: Emergency Provider Emergency Medicine; PCP Family Medicine; Visit Provider Emergency Medicine
DX: R07.9 Chest pain, unspecified (principal); F31.9 Bipolar disorder, unspecified; F17.210 Nicotine dependence, cigarettes, uncomplicated; I10 Essential (primary) hypertension; R60.9 Edema, unspecified; F41.9 Anxiety disorder, unspecified; K21.9 Gastro-esophageal reflux disease without esophagitis; M19.90 Unspecified osteoarthritis, unspecified site; Z90.49 Acquired absence of other specified parts of digestive tract; Z90.710 Acquired absence of both cervix and uterus
CPT/HCPCS: 70450; 71045; 80048; 83880; 84484; 85025; 93005; 99284; A4216

== ENCOUNTER 2024-04-11 08:43 | Day surgery (SDC) | payer OTHER, SELFPAY ==
[2024-04-11] VITALS (11 sets, daily range): BP systolic 116–150; BP diastolic 77–92; PULSE 68–92; RESP 16–18; TEMP 36.7–36.9; O2SAT 95–98; BMI 25.7
[2024-04-11] MEDS: Lactated Ringers 1,000 ML 15 ML IV (09:33)
[2024-04-11 09:55] LABS: Anion Gap 7 (5-15); BUN 14 mg/dL (7-18); BUN/Creat Ratio 16.6 RATIO (10-20); Calcium,Total 9.4 mg/dL (8.5-10.1); Chloride 108 mmol/L (98-107); Creatinine, Serum 0.84 mg/dL (0.55-1.02); EST Glomerular Filtration Rate 73 mL/min (>60); Est Glom Filt Rate - Afr Amer 88 mL/min (>60); Estimated Creatinine Clearance 65.84 ml/min; Glucose 121 mg/dL (74-106); Sodium Level 138 mmol/L (136-145)
[2024-04-11 09:58] LABS: Hemoglobin 13.2 g/dL (12.0-15.0); Mean Corp Hgb Conc 33.8 g/dL (32-36); Mean Corpuscular Hgb 30.1 pg (27.0-32.0); Mean Platelet Vol. 10.1 fl (6.2-12.0); Platelet Count 169 K/mm3 (150-450); RBC Distribution Width CV 12.5 % (11.6-14.6); Red Blood Count 4.38 M/mm3 (4.2-5.4); White Blood Count 4.7 K/mm3 (4.4-11.0)
--- NOTE | 2024-04-11 10:02 | PRE.ANES_ITS ---
ASA Classification* ASA Classification ASA Classification: 2 Assessment & Plan Anesthesia* Anesthesia Assessment Anesthesia Assessment: Discussed sedation and/or anesthesia options, risks, benefits, and alternatives with patient/parents/legal guardian/POA. Questions invited. The patient/parents/legal guardian/POA seems to understand and agrees to proceed with anesthesia plan. Reviewed the physical assessment, medical history, allergy history and patient home medications list prior to surgery/procedure/anesthetic and documented any changes. Performed airway and anesthesia risk assessments. Anesthesia Type Anesthesia Type: General History Source History Obtained from:: Patient and Chart Anesthesia Focused Assessment* Temperature: 98.1 F Pulse Rate: 69 Blood Pressure: 150/91 Respiratory Rate: 16 Pulse Ox: 98 Oxygen Delivery Method: Room Air Airway Assessment Mouth opens: >3 cm Mallampati Score: I Teeth Condition: Caps/Crowns (Patient has several crowns on her molars. They are all tight.) Neck Range of motion (ROM): Limited ROM (Decreased extension secondary to cervical spine surgery) Focused Labs Anesthesia Preop lab: CBC WBC 4.7 K/mm3 (4.4-11.0) 04/11/24 09:25 RBC 4.38 M/mm3 (4.2-5.4) 04/11/24 09:25 Hgb 13.2 g/dL (12.0-15.0) 04/11/24 09:25 Hct 39.0 % (37-47) 04/11/24 09:25 Plt Count 169 K/mm3 (150-450) 04/11/24 09:25 CHEMISTRY Potassium 4.0 mmol/L (3.5-5.1) 04/11/24 09:25 Sodium 138 mmol/L (136-145) 04/11/24 09:25 BUN 14 mg/dL (7-18) 04/11/24 09:25 Creatinine 0.84 mg/dL (0.55-1.02) 04/11/24 09:25 Glucose 121 mg/dL (74-106) H 04/11/24 09:25 TSH 1.02 uIU/mL (0.358-3.74) 10/24/13 12:44 COAG PT 11.7 SECONDS (11.7-14.9) 04/21/20 10:25 Pre-Assessment Diagnosis/Proposed Procedure Planned Operative Procedure(s): CYSTOSCOPY, POSSIBLE URETEHRAL DILATION, POSSIBLE BLADDER BIOPSY, FULGURATION, POSSIBLE HYDRODISTENTION Anesthesia History Anesthesia History - client application support specialist: Anesthesia History - client application support specialist Hx Hospitalization No 04/02/24 09:06 Any Problems With Anesthesia No 04/02/24 09:06 Cholinesterase deficiency No 04/02/24 09:06 You/Your Family Experience No 04/02/24 09:06 fever (hyperthermia) with Relationship Recent Exposure to Contagious No 04/11/24 09:10 Disease Does patient have nerve No 04/02/24 09:06 stimulator Patient instructed to have device shut off --Does patient have Pacemaker No 04/11/24 09:10 or ICD? When Was Last Pacemaker Check QUESTION #4 FULL TEXT: You/Your Family Experience fever (hyperthermia) with Anesthesia Last Oral Intake Last Oral intake: Last Oral Intake NPO since 22:30 04/11/24 09:10 Meds taken in AM with sips of Yes 04/11/24 09:10 water? Meds patient instructed to PROTONIX 04/11/24 09:10 take am of surgery APRIPRAZOLE ATOMEXETINE Any additional information?: Yes Meds taken in AM with sips of water?: Yes PONV PONV - client application support specialist: PONV - client application support specialist Female Yes 04/02/24 09:06 HX of Motion Sickness No 04/02/24 09:06 HX of N/V After Surgery No 04/02/24 09:06 Non-Smoker Yes 04/02/24 09:06 Duration of Surgery greater Yes 04/02/24 09:06 than 60 minutes Number of Risk Factors 3 04/02/24 09:06 PONV Score Moderate Risk 04/02/24 09:06 Height & Weight Height & Weight: Anesthesia: Height & Weight Height 5 ft 3 in 04/11/24 09:10 Weight: 66 kg 04/11/24 09:10 Body Mass Index (BMI) 25.7 04/11/24 09:10 Respiratory Assessment Respiratory Assessment - client application support specialist: Respiratory Tract Infection Hx - client application support specialist Hx Respiratory Tract Infection No 04/02/24 09:06 STOP Sleep Apnea STOP Sleep Apnea - client application support specialist: STOP Sleep Apnea - client application support specialist Hx Hypertension Yes: CONTROLLED WITH MEDS 04/02/24 09:06 Hx Sleep Apnea No 04/02/24 09:06 CPAP BIPAP Do you snore loudly (louder No 04/02/24 09:06 than talking or can be heard Do you often feel tired/ No 04/02/24 09:06 fatigued/ sleepy during daytime? Has anyone observed you stop No 04/02/24 09:06 breathing during sleep? STOP Results Negative 04/02/24 09:06 QUESTION #5 FULL TEXT : Do you snore loudly (louder than talking or can be heard through closed doors)? 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 Specify any problems Hx of Preganancy in last 3 No 04/02/24 09:06 Months Nurse Filling Out Transfusion [email or web address] 04/02/24 09:06 & Questions: Date: 04/02/24 04/02/24 09:06 Time: 09:10 04/02/24 09:06 Patient unable to answer at this time (ie. confused, unrespo /Reproduction History /Reproductive History - client application support specialist: /Reproductive Hx- client application support specialist Hx Now Gestational Age (in weeks): EDC: Hx Hx Para Hx Section SAB Active Medications Active Medications: Current Medications Generic Name Dose Route Start Last Admin Trade Name Freq PRN Reason Stop Dose Admin Cefazolin Sodium 2 gm/ Sodium 110 mls @ 150 mls/hr 04/11/24 11:15 Chloride IV 04/11/24 11:58 PREOP ONE Lactated Ringer's 1,000 mls @ 15 mls/hr 04/11/24 09:00 04/11/24 09:33 IV 15 mls/hr .Q48H NIKA Administration [facility] Medical History Alcohol use Wears glasses Bipolar disorder Anxiety Arthritis Bladder disease Injury of back Back pain Syncope History of IBS Gastric reflux Smoker Hypertension History of deviated nasal septum Neck pain with history of cervical spinal surgery Home Medications ?Medication ?Instructions ?Recorded ?Last Taken ?Type montelukast 10 mg tablet 10 mg PO DAILY 12/04/14 09/25/19 History pantoprazole 40 mg tablet,delayed 40 mg PO DAILY gerd 12/04/14 09/25/19 History release ondansetron 4 mg disintegrating 4 mg PO Q8H PRN PRN Nausea #10 tabs 08/29/17 Unknown Rx tablet cetirizine 10 mg tablet 20 mg PO QHS allergies 09/26/19 09/25/19 History diphenhydramine 25 1 tab PO QHS pain 09/26/19 09/25/19 History mg-acetaminophen 500 mg tablet fluticasone propionate 50 2 spray NASAL QHS allergies 09/26/19 09/25/19 History mcg/actuation nasal spray,suspension hyoscyamine sulfate 0.125 mg tablet 0.125 mg PO DAILY ibs 09/26/19 09/26/19 History diphenoxylate-atropine 2.5 1 ea PO PRN PRN Diarrhea 04/20/20 Unknown History mg-0.025 mg tablet divalproex 125 mg tablet,delayed 125 mg PO BIDCM 04/20/20 Unknown History release ergocalciferol (vitamin D2) 1,250 50,000 unit PO Q7D 04/20/20 Unknown History mcg (50,000 unit) capsule meloxicam 15 mg tablet 15 mg PO DAILY 04/20/20 Unknown History metaxalone 800 mg tablet 800 mg PO TID PRN MUSCLE RELAXER 08/08/22 Unknown History vibegron 75 mg tablet (Gemtesa) 75 mg PO DAILY 08/08/22 Unknown History amlodipine 10 mg tablet 10 mg PO QHS 04/02/24 Unknown History aripiprazole 2 mg tablet 2 mg PO DAILY 04/02/24 Unknown History aripiprazole 5 mg tablet 5 mg PO DAILY 04/02/24 Unknown History atomoxetine 80 mg capsule 80 mg PO DAILY 04/02/24 Unknown History epinephrine 0.3 mg/0.3 mL 0.3 mg IM X1 PRN anaphylaxis 04/02/24 Unknown History injection, auto-injector (EpiPen) estradiol 0.5 mg tablet 0.5 mg PO DAILY 04/02/24 Unknown History naproxen 220 mg-diphenhydramine 25 1 tab PO QPM 04/02/24 Unknown History mg tablet (Aleve PM) quetiapine 50 mg tablet 50 mg PO QHS 04/02/24 Unknown History sumatriptan succinate 50 mg tablet 50 mg PO Q4H PRN PRN migraine 04/02/24 Unknown History headache trazodone 100 mg tablet 200 mg PO QHS insomnia 04/02/24 Unknown History nitrofurantoin 100 mg PO BID #6 caps 04/11/24 Unknown Rx monohydrate/macrocrystals 100 mg capsule (Macrobid) tramadol 50 mg tablet 50 mg PO Q8H PRN pain 3 days #10 04/11/24 Unknown Rx tabs Allergy/AdvReac Type Severity Reaction Status Date / Time adhesive Allergy Hives Verified 04/02/24 08:57 amitriptyline Allergy Hives Verified 04/02/24 08:57 amoxicillin Allergy Hives Verified 04/02/24 08:57 azithromycin (From Zithromax) Allergy Hives Verified 04/02/24 08:57 ciprofloxacin (From Cipro) Allergy Hives Verified 04/02/24 08:57 ciprofloxacin HCl (From Allergy Hives Verified 04/02/24 08:57 Cipro) diphenhydramine HCl (From Allergy Anaphylaxis Verified 04/02/24 08:57 Benadryl) duloxetine HCl (From Allergy Other Verified 04/02/24 08:57 Cymbalta) Food Allergies: Uncoded Allergy NEEDS Verified 04/02/24 08:57 FOLLOW-UP furosemide (From Lasix) Allergy I Verified 04/02/24 08:57 couldn't talk. It put me in the [facility] guaifenesin (From Mucinex) Allergy Hives Verified 04/02/24 08:57 hydrochlorothiazide Allergy Hives Verified 04/02/24 08:57 iodine Allergy Hives Verified 04/02/24 08:57 latex Allergy Hives Verified 04/02/24 08:57 orange juice Allergy Anaphylaxis Verified 04/02/24 08:57 oxycodone HCl (From Percocet) Allergy Hives Verified 04/02/24 08:57 Penicillins Allergy Hives Verified 04/02/24 08:57 povidone-iodine (From Allergy Hives Verified 04/02/24 08:57 Betadine) ramelteon (From Rozerem) Allergy HALLUCINATI Verified 04/02/24 08:57 ONS soap (From Betadine) Allergy Hives Verified 04/02/24 08:57 Sulfa (Sulfonamide Allergy Hives Verified 04/02/24 08:57 Antibiotics) topiramate (From Topamax) Allergy Hives Verified 04/02/24 08:57 venlafaxine HCl (From Allergy Hives Verified 04/02/24 08:57 Effexor) Surgical History H/O neck surgery History of esophagogastroduodenoscopy (EGD) History of colonoscopy Hx of cystoscopy History of hysterectomy History of cholecystectomy Social History Smoking Status: Former smoker Review of Systems (Anesthesia) ROS Narrative System reviewed and no additional complaints, except as documented.
--- NOTE | 2024-04-11 10:07 | DCINST_ITS ---
Discharge Instructions Diet Discharge Diet: No restrictions Activity Discharge Activity: Return to Normal Activity Dressing / Incision Call your doctor if you observe: Fever of 101 or Higher, Inability to urinate and Inability to have a bowel movement Follow Up Care Please Follow Up With: Mandy Asencio MD When: The office will call for follow-up arrangements Test Results: Test results from this visit will be discussed in further detail at your follow- up appointment, if applicable. Discharge Plan Admission Attending Provider: Mandy Asencio Primary Care Provider: Shan Epstein Instructions Print Language: Bangladeshi Discharge Orders/Prescriptions Prescriptions: New tramadol 50 mg tablet 50 mg PO Q8H PRN (Reason: pain) 3 Days Qty: 10 0RF nitrofurantoin monohyd/m-cryst [Macrobid] 100 mg capsule 100 mg PO BID Qty: 6 0RF Rx Instructions: must administer with a meal/food Continued pantoprazole 40 MG tablet 40 mg PO DAILY montelukast 10 MG tablet 10 mg PO DAILY ondansetron 4 MG tablet 4 mg PO Q8H PRN PRN (Reason: Nausea) Qty: 10 0RF cetirizine 10 MG tablet 20 mg PO QHS hyoscyamine sulfate 0.125 MG tablet 0.125 mg PO DAILY diphenhydramine-acetaminophen 1 EACH tablet 1 tab PO QHS fluticasone propionate 1 SPRAY spray,suspension 2 spray NASAL QHS meloxicam 15 MG tablet 15 mg PO DAILY diphenoxylate-atropine 1 EACH tablet 1 ea PO PRN PRN (Reason: Diarrhea) divalproex 125 MG tablet 125 mg PO BIDCM ergocalciferol (vitamin D2) 50,000 UNIT capsule 50,000 unit PO Q7D metaxalone 800 mg tablet 800 mg PO TID PRN (Reason: MUSCLE RELAXER) Patient Comments: TAKE 1 TABLET BY MOUTH THREE TIMES A DAY NEEDED FOR PAIN Gemtesa 75 mg tablet 75 mg PO DAILY amlodipine 10 mg tablet 10 mg PO QHS aripiprazole 5 mg tablet 5 mg PO DAILY aripiprazole 2 mg tablet 2 mg PO DAILY atomoxetine 80 mg capsule 80 mg PO DAILY epinephrine [EpiPen] 0.3 mg/0.3 mL auto-injector 0.3 mg IM X1 PRN (Reason: anaphylaxis) Rx Instructions: for 2 doses estradiol 0.5 mg tablet 0.5 mg PO DAILY Aleve PM 220-25 mg tablet 1 tab PO QPM sumatriptan succinate 50 mg tablet 50 mg PO Q4H PRN PRN (Reason: migraine headache) quetiapine 50 mg tablet 50 mg PO QHS trazodone 100 mg tablet 200 mg PO QHS Referrals / Follow Up: Shan Epstein MD [Primary Care Provider] - Disposition Disposition (needs filled in before D/C Order can be placed): Home, Self Care
--- NOTE | 2024-04-11 10:11 | PCM.OPRPT ---
Report of Operation Date of Procedure: 04/11/24 Pre-Operative Diagnosis: Interstitial cystitis Post-Operative Diagnosis: Same Surgery/Procedure Performed:: Cystoscopy, hydrodistention Surgeon: Mandy Asencio Type of Anesthesia: MAC Description of Procedure: The patient is a 58-year-old female with interstitial cystitis. She is having bladder irritation and has decided to proceed with cystoscopy with hydrodistention under anesthesia. She has done this previously as well. Informed consent was obtained. She was taken to the operating room placed on the operating room table. Anesthesia monitored the head, neck, airway, IV access and vital signs throughout the case. Once anesthesia was appropriately administered, she was placed into dorsolithotomy position and was prepped and draped in usual sterile fashion. The cystoscope was inserted through the urethra under direct visualization into the urinary bladder. The bladder mucosa was visualized in its entirety revealing no evidence of mass, ulceration or foreign body. The bladder was then filled to capacity and left to distended for approximately 2 minutes. It was then emptied and the capacity was measured to be 700 cc. This process was then repeated with no findings of glomerulation or hematuria. The capacity on repeat process was found to be 700 cc. At this time the bladder was emptied and the cystoscope was removed. She was awakened and taken to the recovery room in good condition. There were no complications during this procedure. Grafts/Implants Used: None Complications None Admit VTE Documentation VTE Present on Admission: Yes VTE Mechan Device Prophylaxis: SCD's VTE Pharm Prophylaxis ordered?: No Reason prophylaxis not ordered:: Treatment Not Indicated
--- NOTE | 2024-04-11 10:23 | DCINST_ITS ---
Discharge Instructions Diet Discharge Diet: No restrictions Dressing / Incision Call your doctor if you observe: Fever of 101 or Higher, Inability to urinate and Inability to have a bowel movement Follow Up Care Please Follow Up With: Mandy Asencio MD Test Results: Test results from this visit will be discussed in further detail at your follow- up appointment, if applicable. Discharge Plan Admission Attending Provider: Mandy Asencio Primary Care Provider: Shan Epstein Instructions Print Language: Welsh Discharge Orders/Prescriptions Prescriptions: New tramadol 50 mg tablet 50 mg PO Q8H PRN (Reason: pain) 3 Days Qty: 10 0RF nitrofurantoin monohyd/m-cryst [Macrobid] 100 mg capsule 100 mg PO BID Qty: 6 0RF Rx Instructions: must administer with a meal/food fluconazole 150 mg tablet 150 mg PO Q3D Qty: 2 0RF Rx Instructions: Take 1 tablet p.o., repeat in 3 days if symptoms persist Continued pantoprazole 40 MG tablet 40 mg PO DAILY montelukast 10 MG tablet 10 mg PO DAILY ondansetron 4 MG tablet 4 mg PO Q8H PRN PRN (Reason: Nausea) Qty: 10 0RF cetirizine 10 MG tablet 20 mg PO QHS hyoscyamine sulfate 0.125 MG tablet 0.125 mg PO DAILY diphenhydramine-acetaminophen 1 EACH tablet 1 tab PO QHS fluticasone propionate 1 SPRAY spray,suspension 2 spray NASAL QHS meloxicam 15 MG tablet 15 mg PO DAILY diphenoxylate-atropine 1 EACH tablet 1 ea PO PRN PRN (Reason: Diarrhea) divalproex 125 MG tablet 125 mg PO BIDCM ergocalciferol (vitamin D2) 50,000 UNIT capsule 50,000 unit PO Q7D metaxalone 800 mg tablet 800 mg PO TID PRN (Reason: MUSCLE RELAXER) Patient Comments: TAKE 1 TABLET BY MOUTH THREE TIMES A DAY NEEDED FOR PAIN Gemtesa 75 mg tablet 75 mg PO DAILY amlodipine 10 mg tablet 10 mg PO QHS aripiprazole 5 mg tablet 5 mg PO DAILY aripiprazole 2 mg tablet 2 mg PO DAILY atomoxetine 80 mg capsule 80 mg PO DAILY epinephrine [EpiPen] 0.3 mg/0.3 mL auto-injector 0.3 mg IM X1 PRN (Reason: anaphylaxis) Rx Instructions: for 2 doses estradiol 0.5 mg tablet 0.5 mg PO DAILY Aleve PM 220-25 mg tablet 1 tab PO QPM sumatriptan succinate 50 mg tablet 50 mg PO Q4H PRN PRN (Reason: migraine headache) quetiapine 50 mg tablet 50 mg PO QHS trazodone 100 mg tablet 200 mg PO QHS Referrals / Follow Up: Shan Epstein MD [Primary Care Provider] - Disposition Disposition (needs filled in before D/C Order can be placed): Home, Self Care
[2024-04-11] MEDS: Cefazolin 2 GM in 0.9% Normal Saline (100mL Bag) 100 ML IV (10:24)
[2024-04-11] MEDS: Ketorolac 15 MG/ML Vial IV (11:15)
--- NOTE | 2024-04-11 12:23 | PCM.POST.ANE ---
Anesthesia: Postop Eval I Current Vital Signs Temperature: 98.1 F Pulse Rate: 92 Blood Pressure: 116/77 Respiratory Rate: 18 Pulse Ox: 96 Oxygen Delivery Method: Nasal Cannula Assessment Airway patent: No Spontaneous unlabored respirations: No Mental status: Awake and Calm nausea: No Vomiting: No Anesthesia Complication: No Fluid Hydration Crystalloid volume administer (ml): 500 Total IV fluid infused: 500 Progress Note Anesthesia document: Postop Eval 1 completed: Yes
== END 2024-04-11 11:54 | disposition home or self-care (01) ==
LOC: SDC 08:43 → AC 08:46
PROVIDERS: PCP Family Medicine; Referring Provider Urology; Visit Provider Urology
PROC: 0TBB8ZX Excision of Bladder, Via Natural or Artificial Opening Endoscopic, Diagnostic (ICD-10-PCS; CPT 52260; principal; 2024-04-11 10:10)
DX: N30.10 Interstitial cystitis (chronic) without hematuria (principal); Z87.891 Personal history of nicotine dependence; Z90.49 Acquired absence of other specified parts of digestive tract; Z90.710 Acquired absence of both cervix and uterus; Z87.19 Personal history of other diseases of the digestive system; F41.9 Anxiety disorder, unspecified; Z87.440 Personal history of urinary (tract) infections; K58.9 Irritable bowel syndrome, unspecified; R35.1 Nocturia; N35.92 Unspecified urethral stricture, female; N32.81 Overactive bladder
CPT/HCPCS: 52260; 00910; 80048; 85027; J7120; J2405